=== PATIENT | female | born 1955 ===

== ENCOUNTER 2021-07-05 22:18 | Inpatient (IN) | payer SELFPAY ==
--- NOTE | ~2021-07-05 | CT_ITS ---
EXAMINATION: CT brain wo con DATE: 07/14/2021 15:34 INDICATION: rt arm tremor TECHNIQUE: Computed tomography (CT) of the head was performed without intravenous contrast. The mA wa s adjusted according to patient size. Iterative reconstruction technique was employed. The dose-lengt h product was 529.67 mGy-cm. COMPARISON: None FINDINGS: No acute intracranial hemorrhage or extra-axial fluid collection. No hydrocephalus, mass, or herniation. No acute ischemic infarct. Unremarkable dural venous sinus attenuation. No acute osseous abnormality. The aerated spaces are clear. Mild atrophy and chronic white matter change. Encephalomalacia/gliosis in the right basal ganglia and the right frontal, right temporal, and left medial occipital lobes. Atherosclerotic intracranial thea cification. Multiple partially calcified scalp lesions. IMPRESSION: No acute intracranial process. Reviewed, dictated and finalized at location K.
--- NOTE | ~2021-07-05 | NM_ITS ---
EXAMINATION: NM martín stress w perfusion DATE: 07/09/2021 10:30 INDICATION: Elevated troponin. Near syncope. TECHNIQUE: Rest images were obtained following intravenous administration of 10.0 mCi Tc99m tetrofosm in (Myoview). The patient was infused intravenously with Lexiscan (regadenoson). Then, 29.8 mCi Tc99m tetrofosmin (Myoview) was administered intravenously, and stress images were obtained. Data was navid nstructed into short axis and horizontal and vertical long axis SPECT images. Gated SPECT images were also obtained. COMPARISON: None. FINDINGS: Breast attenuation artifact decreases sensitivity and specificity. There is no definite rev ersible or fixed perfusion abnormality to suggest ischemia or infarction. There is no segmental wall motion abnormality. Left ventricular ejection fraction measures >70%. IMPRESSION: 1. No definite ischemia or infarct. Breast attenuation artifact decreases sensitivity and specificity . 2. Normal left ventricular ejection fraction measuring >70%. Reviewed, dictated and finalized at location A. IMPRESSION: 1. No definite ischemia or infarct. Breast attenuation artifact decreases sensi tivity and specificity. 2. Normal left ventricular ejection fraction measuring >70%.
--- NOTE | ~2021-07-05 | XR_ITS ---
EXAMINATION: XR chest 1V portable DATE: 07/14/2021 10:13 INDICATION: Hypotension. TECHNIQUE: A single frontal view of the chest was obtained. COMPARISON: None. FINDINGS: The chest demonstrates clear lungs without pneumonia, pleural effusion, or pneumothorax. Th e heart size is normal. IMPRESSION: 1. No acute cardiopulmonary disease. Reviewed, dictated and finalized at location A.
[2021-07-05 21:45] VITALS: PULSE 77
[2021-07-05 21:50] VITALS: BMI 20.2
[2021-07-05 22:00] VITALS: O2SAT 96
--- NOTE | 2021-07-05 22:30 | ADMGEN ---
This patient, Francisca Gonzales, was admitted to IMU Room 202-01 at 2136. Patient/family oriented to hospital policies and general routines including ID bracelet, bed and alarms, visiting hours, pain management, procedures, bathroom and other care routines, personal items, smoking policy, room service/diet, and visiting hours. Information on how to activate the Rapid Response Team has been discussed. Patient/Family are encouraged to report perceived risks to care and to ask questions if they do not understand what they are told or what they should do.
[2021-07-05 22:59] LABS: Alanine Aminotransferase 11 U/L (4-35); Albumin Level 4.1 g/dL (3.5-5.1); Alkaline Phosphatase 83 U/L (38-126); Anion Gap 12 mmol/L (8-16); Aspartate Amino Transferase 34 U/L (14-36); Bilirubin,Total 0.9 mg/dL (0.2-1.3); Blood Urea Nitrogen 15 mg/dL (7-17); Calcium 9.3 mg/dL (8.4-10.2); Carbon Dioxide 20 mmol/L (22-30); Chloride 99 mmol/L (98-107); Estimated CRCL calculation 45 ml/min; Estimated Glomerular Filt Rate > 60; Glucose 81 mg/dL (65-110); Potassium 3.6 mmol/L (3.4-5.0); Sodium 131 mmol/L (137-145)
--- NOTE | 2021-07-05 23:22 | PM.IMHP ---
H&P: HPI History of Present Illness Date/Time: Patient was placed observation status for expected length of stay less than 23 hours for management, will plan to re-evaluate tomorrow for improvement. 07/05/21 23:22 Chief Complaint: Emotional distress Narrative: Ms. Gonzales is a 55-year-old female who presented to an outside emergency room with complaints of weakness per outside emergency room records. At this time patient is telling me that she went to the emergency room for emotional distress and she states that she is under a large amount of stress at home and has lost 100 lb in 4 months and she needed help with her finding assistance for her distress. Per outside records patient went into emergency room for complaints of generalized weakness for unknown amount of time. Patient had denied any chest pain, nausea, vomiting, fevers, chills, chest pain, or shortness of breath. At this point time patient will not discuss any symptomology with me she states that she is just to her limit of stress and that is why she is here. Per outside records patient has not been taking her medications for 3-4 days. At this point time she states she takes them off and on and that her tries to assist her with him, but he is also under a large amount of stress and is not always able to help her. Per outside records patient does have a history of chronic hyponatremia and has been hospitalized at least twice for this issue. Upon evaluation at the emergency room patient was noted to have a sodium of 128 and a troponin of 0.046. It was decided that the patient may be transferred to in establishment that had Cardiology available for further recommendations. Patient states that she did have bilateral carotid endarterectomies, but denies any coronary artery stenting or coronary artery bypass grafting. Per outside emergency records patient does have a significant psychiatric history including depressive disorder and is supposed to be taking BuSpar 15 mg twice daily, Lexapro 10 mg once daily, Ativan 0.5 mg every 12 hours as needed for anxiety, Remeron 15 mg at bedtime. Patient is also supposed to be taking amlodipine 5 mg daily aspirin 81 mg once daily atorvastatin 80 mg daily and labetalol every 12 hours. As I stated we are unsure of how long patient has been now off of her medications. Review of Systems Review of Systems: I am unable to obtain a full review of systems secondary effect the patient is refusing to answer questions. FOR[facility]LY [facility], LATER [facility] Past Medical History Medical History (Updated 07/05/21 @ 23:30 by Eleanor Leahy APRN) COPD (chronic obstructive pulmonary disease) Dyslipidemia Hypertension Hyponatremia Psychiatric disorder Surgical History Surgical History (Updated 07/05/21 @ 23:29 by Eleanor Leahy APRN) History of carotid endarterectomy Family History Family History Mother Parkinson disease Sibling Breast cancer Father Heart attack Social History Social History Smoking packs per day: 1.5 Smoking cigarettes per day: 30.0 Years smoked: 30 Smoking pack-years: 45.00 Smoking status: Former smoker Alcohol intake: never Substance use: never Spiritual care concerns: No Meds Home Medications and Allergies Home Medications Medication Instructions Recorded Confirmed Type Aspir-81 81 mg PO BID 07/05/21 07/05/21 History amlodipine 5 mg PO DAILY 07/05/21 07/05/21 History atorvastatin 80 mg PO HS 07/05/21 07/05/21 History buspirone [BuSpar] 15 mg PO BID 07/05/21 07/05/21 History escitalopram oxalate [Lexapro] 10 mg PO DAILY 07/05/21 07/05/21 History labetalol 100 mg PO Q12H 07/05/21 07/05/21 History meloxicam 15 mg PO DAILY 07/05/21 07/05/21 History mirtazapine [Remeron] 15 mg PO HS 07/05/21 07/05/21 History omeprazole 20 mg PO DAILY 07/05/21 07/05/21 History Allergies Allergy/AdvReac Type Severity Reaction Status Date / Time mold Allergy Headache Verified
[2021-07-05 23:37] LABS: Troponin I 0.064 ng/mL (0.000-0.034)
[2021-07-05 23:43] LABS: Hemoglobin A1C 5.5 % (<5.7)
[2021-07-05 23:48] VITALS: BP 112/68; PULSE 79; RESP 16; TEMP 37.1; O2SAT 99
[2021-07-06] VITALS (21 sets, daily range): BP systolic 98–169; BP diastolic 55–96; PULSE 2–102; RESP 16–20; TEMP 36.3–36.8; O2SAT 98–100
--- NOTE | 2021-07-06 | ECHO_ITS ---
Patient Info Name: Francisca Gonzales Age: 65 years : 1955 Gender: Female Ht: 60 in Wt: 109 lbs BSA: 1.45 m2 HR: 75 bpm BP: 110 / 60 mmHg Technical Quality: Good Exam Date: 07/06/2021 2:37 PM Exam Location: [facility] Pulmonary Exam Room: [facility] [place][note 3] Patient Status: Inpatient Admit Date: 07/05/2021 Staff Ordering Physician: Luther Berumen MD Pick And Shovel Man: Mariaa Obrien RDCS Attending Provider: Jose Ramon Zimmerman MD Exam Type: CA echo doppler color flow Study Info Indications - elevated troponins Complete two-dimensional, color flow and Doppler transthoracic echocardiogram is performed. Summary 1. Complete two-dimensional, color flow and Doppler transthoracic echocardiogram is performed. 2. Left ventricular chamber dimension is normal. 3. Left ventricular systolic function is normal, estimated at 65-70%. 4. There is no increased left ventricular wall thickness. 5. The left ventricular diastolic function is grade I diastolic dysfunction. 6. Left ventricular septal wall motion is normal. 7. Right ventricular chamber dimension is normal. 8. Right ventricular systolic function is normal. 9. No pulmonary hypertension, estimated pulmonary arterial systolic pressure is 26 mmHg. 10. There is small to moderate circumferential pericardial effusion. Left Ventricle Left ventricular chamber dimension is normal. Left ventricular systolic function is normal, estimated at 65-70%. There is no increased left ventricular wall thickness. Left ventricular septal wall motion is normal. The left ventricular diastolic function is grade I diastolic dysfunction. Right Ventricle Right ventricular chamber dimension is normal. Right ventricular systolic function is normal. Left Atria Left atrial chamber dimension is normal. Right Atria Right atrial chamber dimension is normal. Aortic Valve The aortic valve is trileaflet. There is no aortic valve sclerosis. There is no aortic valve stenosis. There is no aortic valve regurgitation. Pulmonic Valve The pulmonic valve is not well visualized. Mitral Valve The mitral valve has normal leaflets. There is no mitral valve stenosis. There is no mitral valve regurgitation. Tricuspid Valve The tricuspid valve leaflets are normal. There is no significant tricuspid valve stenosis. There is no tricuspid valve regurgitation. No pulmonary hypertension, estimated pulmonary arterial systolic pressure is 26 mmHg. Pericardium/Pleural There is small to moderate circumferential pericardial effusion. Inferior Vena Cava Normal inferior vena cava with >50% collapse upon inspiration consistent with Empty right atrial pressure, 10 mmHg. Aorta The aortic root size at the sinus of Valsalva is normal. The prox ascending aorta size is normal. Left Ventricular Outflow Tract Name Value Normal LVOT 2D LVOT Diameter 2.0 cm LVOT Doppler LVOT Peak Gradient 4 mmHg LVOT Mean Gradient 3 mmHg LVOT VTI 20 cm LVOT VTI/AV VTI Ratio 1.0 LVOT Stroke Volume
[2021-07-06] MEDS: LABETALOL HCL 100 MG TABLET PO ×2 (00:29→20:52)
[2021-07-06] MEDS: ATORVASTATIN 40 MG TABLET 80 MG PO ×2 (00:30→20:52)
[2021-07-06] MEDS: MIRTAZAPINE 15 MG TABLET PO ×2 (00:30→20:52)
[2021-07-06] MEDS: SODIUM CHLORIDE 0.9% IV 1,000 ML 100 ML IV CONT ×3 (00:30→18:15)
[2021-07-06] MEDS: MELATONIN 3 MG TABLET PO (01:20)
[2021-07-06 02:08] LABS: Troponin I 0.069 ng/mL (0.000-0.034)
[2021-07-06] MEDS: ONDANSETRON INJ 4 MG/2 ML VIAL IV PUSH (03:25)
[2021-07-06 05:18] LABS: Basophils Absolute Auto 0.1 K/mm3 (0.0-0.1); Basophils Percent Auto 0.7 % (0.2-1.2); Eosinophils Absolute Auto 0.1 K/mm3 (0-0.3); Eosinophils Percent Auto 0.8 % (0-4.4); Hematocrit 43.4 % (37.0-47.0); Hemoglobin 14.5 g/dL (12.0-15.0); Immature Granulocyte Absolute 0.03 K/mm3 (0.00-0.031); Immature Granulocyte Percent A 0.3 % (0-0.5); Lymphocytes Percent Auto 13.3 % (18.3-44.2); Mean Corpuscular HGB Conc 33.4 g/dl (32-36); Mean Corpuscular Hemoglobin 28.2 pg (26-34); Mean Corpuscular Volume 84.3 fl (80-100); Mean Platelet Volume 10.9 fl (7.4-10.4); Monocytes Absolute Auto 0.6 K/mm3 (0.1-0.6); Neutrophils Absolute Auto 7.7 K/mm3 (1.3-6.7); Neutrophils Percent Auto 78.9 % (45.5-73.1); Platelet Count Result 290 k/mm3 (150-375); Red Blood Count 5.15 M/mm3 (4.2-5.4); Red Cell Distribution Width 14.4 % (11.5-14.5); White Blood Count 9.8 K/mm3 (4.5-10.0)
[2021-07-06 05:33] LABS: Anion Gap 11 mmol/L (8-16); Blood Urea Nitrogen 16 mg/dL (7-17); Calcium 8.8 mg/dL (8.4-10.2); Carbon Dioxide 22 mmol/L (22-30); Chloride 100 mmol/L (98-107); Estimated CRCL calculation 45 ml/min; Estimated Glomerular Filt Rate > 60; Glucose 73 mg/dL (65-110); Magnesium 1.8 mg/dL (1.6-2.3); Potassium 3.5 mmol/L (3.4-5.0); Sodium 133 mmol/L (137-145)
[2021-07-06 05:42] LABS: Troponin I 0.066 ng/mL (0.000-0.034)
[2021-07-06] MEDS: ASPIRIN 81 MG CHEWABLE TABLET PO (09:06)
[2021-07-06] MEDS: PANTOPRAZOLE 40 MG TABLET PO (09:06)
[2021-07-06] MEDS: ESCITALOPRAM OXALATE 10 MG TABLET PO (09:06)
[2021-07-06] MEDS: MELOXICAM 7.5 MG TABLET 15 MG PO (09:06)
[2021-07-06] MEDS: busPIRone HCL 5 MG TABLET 15 MG PO ×2 (09:07→17:18)
--- NOTE | 2021-07-06 12:46 | PM.IMPN ---
Progress Note: A&P Assessment and Plan (1) Elevated troponin: Code(s): R77.8 - Other specified abnormalities of plasma proteins Status: Acute Assessment and Plan: No workup needed. Cardiology has been consult and do appreciate further recommendations. (2) Psychiatric disorder: Code(s): F99 - Mental disorder, not otherwise specified Status: Acute Assessment and Plan: Patient is on multiple psychiatric medications. Will need close outpatient monitoring. (3) Hypertension: Code(s): I10 - Essential (primary) hypertension Status: Acute Assessment and Plan: Monitor blood pressure. Continue current medicines (4) Hyponatremia: Code(s): E87.1 - Hypo-osmolality and hyponatremia Status: Acute Assessment and Plan: The patient does have some mild altered mental status. No focal neurological deficits. Cause is likely related to multiple psychiatric medications. Will start sodium chloride tablets. Also note patient does have decreased p.o. intake and has lost some weight. According to her she does not eat much at all. Will start Megace Subjective Date/time seen: 07/06/21 12:46 DOING WELL, NO COMPLAINTS OF CHEST PAIN THE PATIENT IS SLIGHTLY CONFUSED. ACCORDING TO THE WHO IS AT BEDSIDE, THE PATIENT GETS LIKE this with a low sodium. Review of Systems Review of Systems: All systems reviewed & are unremarkable except as noted in HPI and below (HPI) Exam Narrative: Constitutional: Patient is well-nourished in no acute distress. Patient is alert and oriented x3 HEENT: Moist mucous membranes. No scleral icterus. No lymphadenopathy. Neck: No carotid bruits noted no JVD noted Lungs: Lung sounds are clear to auscultation bilaterally. No accessory muscle use. No rhonchi, rales, or wheezes noted. Cardiovascular: Apical pulse is regular rate and rhythm. S1-S2 noted, no S3 or S4 noted. No gallops, murmurs, or rubs noted. Abdomen: Soft, round, and nontender. No sagging skin noted at this time. No palpable masses. Extremities: No edema. Nontender. Skin: No rashes or lesions. Warm and dry. Skin is intact. Neurological: No focal neurological deficits. Cranial nerves II-XII grossly intact. Psychiatric: Patient is uncooperative and not answering questions. Objective Data Vital Signs Vital Signs: Vital Signs - 24 hr 07/05/21 21:45 07/05/21 22:00 07/05/21 23:48 Temperature 98.8 F Pulse Rate 77 79 Respiratory Rate 16 Blood Pressure 112/68 Pulse Oximetry 96 99 07/06/21 00:00 07/06/21 00:29 07/06/21 02:00 Temperature Pulse Rate 76 76 70 Respiratory Rate Blood Pressure Pulse Oximetry 99 07/06/21 04:00 07/06/21 06:00 07/06/21 08:00 Temperature 97.5 F L Pulse Rate 68 81 72 Respiratory Rate 16 16 Blood Pressure 108/61 Pulse Oximetry 100 100 07/06/21 08:29 07/06/21 10:00 07/06/21 10:29 Temperature 98.2 F Pulse Rate 71 72 94 Respiratory Rate 16 Blood Pressure 98/55 L Pulse Oximetry 100 07/06/21 12:18 07/06/21 12:34 Temperature 97.6 F Pulse Rate 72 70 Respiratory Rate 18 Blood Pressure 110/60 Pulse Oximetry 98 Intake/Output Intake/Output: Intake & Output 07/03/21 07/04/21 07/05/21 07/06/21 23:59 23:59 23:59 23:59 Intake Total 1120 Output Total 1500 Balance -380 Meds/Results Medications: Active Medications Generic Name Dose Route Start Last Admin Trade Name Freq PRN Reason Stop Dose Admin Acetaminophen 650 mg 07/05/21 22:16 Acetaminophen 325 Mg Tablet PO Q4H PRN Mild Pain (1-3) or Fever Amlodipine Besylate 5 mg 07/06/21 09:00 07/06/21 12:04 Amlodipine Besylate 5 Mg Tablet PO Not Given DAILY [facility] Aspirin 81 mg 07/06/21 08:00 07/06/21 09:06 Aspirin 81 Mg Chewable Tablet PO 81 mg BIDWM HANNAH Administration Atorvastatin Calcium 80 mg 07/06/21 00:05 07/06/21 00:30 Atorvastatin 40 Mg Tablet PO 80 mg HS
--- NOTE | 2021-07-06 12:50 | PM.CNCAR ---
Assessment and Plan Additional Plan Elevated trop, no chest pain or SOB or other cardiac symptoms, EKG with no concern for ACS. trop elevation with no significant delta. AMS likely related to hyponatremia vs stroke. She had Hx of TIA and CEA. Plan TTE, rule out stroke, work up for CAD can be considered when she recovers from current acute mental illness/hyponatremia. History of Present Illness History of Present Illness Consult date/time: 07/06/21 12:50 Consult reason: Other (Elevated troponin ) Reason For Visit: Hyponatremia elevated trop Narrative: Patient is confused and can't obtain Hx from her. History is abstracted from chart. She presented to ER with complaints of weakness, generalized and sever. She had Hx of psychiatric disorder and had prior admission with hyponatremia and confusion. She mentioned that she lives with her and he is taking care of her. On admission her K was 128 and trop was mildly elevated at 0.04 with slight changes on serial measures. Review of Systems Review of Systems: ROS unobtainable: Yes unobtainable due to mental status PMFSH Past Medical History Medical History (Updated 07/05/21 @ 23:30 by Eleanor Leahy APRN) COPD (chronic obstructive pulmonary disease) Dyslipidemia Hypertension Hyponatremia Psychiatric disorder Surgical History Surgical History (Updated 07/05/21 @ 23:29 by Eleanor Leahy APRN) History of carotid endarterectomy Family History Family History Mother Parkinson disease Sibling Breast cancer Father Heart attack Social History Social History Smoking packs per day: 1.5 Smoking cigarettes per day: 30.0 Years smoked: 30 Smoking pack-years: 45.00 Smoking status: Former smoker Alcohol intake: never Substance use: never Spiritual care concerns: No Meds Home Medications and Allergies Home Medications Medication Instructions Recorded Confirmed Type Aspir-81 81 mg PO BID 07/05/21 07/05/21 History amlodipine 5 mg PO DAILY 07/05/21 07/05/21 History atorvastatin 80 mg PO HS 07/05/21 07/05/21 History buspirone [BuSpar] 15 mg PO BID 07/05/21 07/05/21 History escitalopram oxalate [Lexapro] 10 mg PO DAILY 07/05/21 07/05/21 History labetalol 100 mg PO Q12H 07/05/21 07/05/21 History meloxicam 15 mg PO DAILY 07/05/21 07/05/21 History mirtazapine [Remeron] 15 mg PO HS 07/05/21 07/05/21 History omeprazole 20 mg PO DAILY 07/05/21 07/05/21 History Allergies Allergy/AdvReac Type Severity Reaction Status Date / Time mold Allergy Headache Verified 07/05/21 22:38 ciprofloxacin [From Cipro] AdvReac Itching Verified 07/05/21 22:52 Vital Signs Vital Signs - 24 hr 07/05/21 21:45 07/05/21 22:00 07/05/21 23:48 Temperature 37.1 C Pulse Rate 77 79 Respiratory Rate 16 Blood Pressure 112/68 Pulse Oximetry 96 99 07/06/21 00:00 07/06/21 00:29 07/06/21 02:00 Temperature Pulse Rate 76 76 70 Respiratory Rate Blood Pressure Pulse Oximetry 99 07/06/21 04:00 07/06/21 06:00 07/06/21 08:00 Temperature 36.4 C L Pulse Rate 68 81 72 Respiratory Rate 16 16 Blood Pressure 108/61 Pulse Oximetry 100 100 07/06/21 08:29 07/06/21 10:00 07/06/21 10:29 Temperature 36.8 C Pulse Rate 71 72 94 Respiratory Rate 16 Blood Pressure 98/55 L Pulse Oximetry 100 07/06/21 12:18 07/06/21 12:34 Temperature 36.4 C Pulse Rate 72 70 Respiratory Rate 18 Blood Pressure 110/60 Pulse Oximetry 98 Exam Const: General: comfortable and no acute distress Other: Able to lie flat HENMT: General nose exam: Normal nares present and no epistaxis Mouth: Yes moist mucous membranes Eyes: Sclera: sclerae normal Pupils: Equal, round and reactive pupils present Neck: Neck: supple and no JVD Carotids: no bruits Resp: Auscultation: clear to auscultation bilaterally and lung sounds not diminished Other: No chest wall tenderness Cardio: Rate
--- NOTE | 2021-07-06 13:07 | ECG_ITS ---
Measurements Intervals [place] Rate: 76 P: 74 [place]: 194 QRS: 34 QRSD: 95 T: 44 QT: 418 QTc: 472 Interpretive Statements SINUS RHYTHM POSSIBLE RIGHT VENTRICULAR CONDUCTION DELAY [RSR (QR) IN V1/V2] NO PREVIOUS ECG AVAILABLE FOR COMPARISON Electronically Signed On 07-07-2021 6:54:09 CDT by Stefani Fernandes M.D.
--- NOTE | 2021-07-06 16:00 | PC.NURSE ---
Patient bladder scan obtained at 1600, as patient was unable to void. Bladder scan noted to have [address] Bowling notified and an order was obtained to initiate a urinary catheter, and begin bladder training.
[2021-07-06] MEDS: MEGESTROL ACETATE (*CHEMO) ORAL SUSP 40 MG/ML SYR 800 MG PO (17:18)
[2021-07-06] MEDS: SODIUM CHLORIDE 500 MG TABLET PO (17:18)
[2021-07-07] VITALS (11 sets, daily range): BP systolic 98–160; BP diastolic 56–79; PULSE 73–97; RESP 14–18; TEMP 35.9–36.5; O2SAT 99–100
[2021-07-07] MEDS: SODIUM CHLORIDE 0.9% IV 1,000 ML 100 ML IV CONT ×3 (04:30→22:58)
[2021-07-07 05:05] LABS: Anion Gap 5 mmol/L (8-16); Blood Urea Nitrogen 13 mg/dL (7-17); Calcium 8.5 mg/dL (8.4-10.2); Carbon Dioxide 24 mmol/L (22-30); Chloride 108 mmol/L (98-107); Estimated CRCL calculation 50 ml/min; Estimated Glomerular Filt Rate > 60; Glucose 113 mg/dL (65-110); Potassium 3.1 mmol/L (3.4-5.0); Sodium 137 mmol/L (137-145)
[2021-07-07] MEDS: busPIRone HCL 5 MG TABLET 15 MG PO ×2 (08:15→16:19)
[2021-07-07] MEDS: ASPIRIN 81 MG CHEWABLE TABLET PO (08:16)
[2021-07-07] MEDS: MEGESTROL ACETATE (*CHEMO) ORAL SUSP 40 MG/ML SYR 800 MG PO (08:17)
[2021-07-07] MEDS: MELOXICAM 7.5 MG TABLET 15 MG PO (08:17)
[2021-07-07] MEDS: PANTOPRAZOLE 40 MG TABLET PO (08:18)
[2021-07-07] MEDS: LABETALOL HCL 100 MG TABLET PO ×2 (08:18→20:47)
[2021-07-07] MEDS: SODIUM CHLORIDE 500 MG TABLET PO ×2 (08:18→16:19)
[2021-07-07] MEDS: ESCITALOPRAM OXALATE 10 MG TABLET PO (08:18)
--- NOTE | 2021-07-07 11:53 | PM.IMPN ---
Progress Note: A&P Assessment and Plan (1) Elevated troponin: Code(s): R77.8 - Other specified abnormalities of plasma proteins Status: Acute Assessment and Plan: No workup needed. Cardiology has been consult and do appreciate further recommendations. (2) Psychiatric disorder: Code(s): F99 - Mental disorder, not otherwise specified Status: Acute Assessment and Plan: Patient is on multiple psychiatric medications. Will need close outpatient monitoring. (3) Hypertension: Code(s): I10 - Essential (primary) hypertension Status: Acute Assessment and Plan: Monitor blood pressure. Continue current medicines (4) Hyponatremia: Code(s): E87.1 - Hypo-osmolality and hyponatremia Status: Acute Assessment and Plan: The patient does have some mild altered mental status. No focal neurological deficits. Her altered mental status is much improved. Cause is likely related to multiple psychiatric medications. Will start sodium chloride tablets. Also note patient does have decreased p.o. intake and has lost some weight. According to her she does not eat much at all. Will start Megace. Sodium is much improved. Her ultimate her mental status is also improved significantly. Likely discharge in 1-2 days Subjective Date/time seen: 07/07/21 11:53 Doing much better. Patient is answering questions. She is able to tell me the date and where she is at. Much more alert today Review of Systems Review of Systems: All systems reviewed & are unremarkable except as noted in HPI and below (HPI) Exam Narrative: Constitutional: Patient is well-nourished in no acute distress. Patient is alert and oriented x3 HEENT: Moist mucous membranes. No scleral icterus. No lymphadenopathy. Neck: No carotid bruits noted no JVD noted Lungs: Lung sounds are clear to auscultation bilaterally. No accessory muscle use. No rhonchi, rales, or wheezes noted. Cardiovascular: Apical pulse is regular rate and rhythm. S1-S2 noted, no S3 or S4 noted. No gallops, murmurs, or rubs noted. Abdomen: Soft, round, and nontender. No sagging skin noted at this time. No palpable masses. Extremities: No edema. Nontender. Skin: No rashes or lesions. Warm and dry. Skin is intact. Neurological: No focal neurological deficits. Cranial nerves II-XII grossly intact. Psychiatric: Patient is uncooperative and not answering questions. Objective Data Vital Signs Vital Signs: Vital Signs - 24 hr 07/06/21 12:18 07/06/21 12:30 07/06/21 12:34 Temperature 97.6 F Pulse Rate 72 73 70 Respiratory Rate 18 Blood Pressure 110/60 Pulse Oximetry 98 07/06/21 14:00 07/06/21 16:00 07/06/21 16:48 Temperature 97.7 F Pulse Rate 76 75 76 Respiratory Rate 20 Blood Pressure 146/70 H Pulse Oximetry 100 07/06/21 18:00 07/06/21 19:32 07/06/21 20:00 Temperature 97.3 F L Pulse Rate 97 78 72 Respiratory Rate 16 Blood Pressure 147/74 H Pulse Oximetry 99 99 07/06/21 20:52 07/06/21 22:03 07/06/21 23:46 Temperature 98.3 F Pulse Rate 81 73 102 H Respiratory Rate 16 Blood Pressure 169/96 H Pulse Oximetry 100 07/07/21 00:00 07/07/21 02:00 07/07/21 04:00 Temperature 97.1 F L Pulse Rate 86 73 86 Respiratory Rate 16 Blood Pressure 148/78 H Pulse Oximetry 100 100 07/07/21 06:00 07/07/21 07:44 07/07/21 08:00 Temperature 96.7 F L Pulse Rate 76 84 86 Respiratory Rate 14 Blood Pressure 122/72 Pulse Oximetry 99 100 07/07/21 08:18 07/07/21 10:00 07/07/21 11:44 Temperature 97.0 F L Pulse Rate 97 77 73 Respiratory Rate 18 Blood Pressure 104/67 Pulse Oximetry 100 Intake/Output Intake/Output: Intake & Output 07/04/21 07/05/21 07/06/21 07/07/21 23:59 23:59 23:59 23:59 Intake Total 2560 1130 Output Total 2600 1650 Balance -40 -520 Meds/Results Medications: Active Medications Generic Name Dose Route Start Last A
--- NOTE | 2021-07-07 12:59 | PM.PNCARD ---
Progress Note: A&P Additional Plan Elevated trop, no chest pain or SOB or other cardiac symptoms, EKG with no concern for ACS. trop elevation with no significant delta. AMS likely related to hyponatremia improved. She had Hx of TIA and CEA. Plan TTE, stress test in AM. Subjective Date/time seen: 07/07/21 12:59 Interval history: no acute events more awake today but sluggish response Review of Systems Review of Systems: All systems reviewed & are unremarkable except as noted in HPI and below Exam Const: General: comfortable and no acute distress Other: Able to lie flat HENMT: General nose exam: Normal nares present and no epistaxis Mouth: Yes moist mucous membranes Eyes: Sclera: sclerae normal Pupils: Equal, round and reactive pupils present Neck: Neck: supple and no JVD Carotids: no bruits Resp: Auscultation: clear to auscultation bilaterally and lung sounds not diminished Other: No chest wall tenderness Cardio: Rate: regular rate Rhythm: regular rhythm Heart sounds: no gallops, no murmurs and no rubs GI: GI Palp: Yes Soft to palpation and No Tenderness to palpation present (GI) Auscultation: normal bowel sounds Skin: General skin exam: normal color, rashes and/or lesions noted and no erythema Other: Warm Neuro: Cranial nerves: Yes Equal, round and reactive pupils present Speech: normal speech Other: No obvious focal deficit or facial asymmetry Extrem: General: no edema Other: Normal capillary refills Intact distal pulses. Objective Data Vital Signs Vital Signs: Vital Signs - 24 hr 07/06/21 14:00 07/06/21 16:00 07/06/21 16:48 Temperature 36.5 C Pulse Rate 76 75 76 Respiratory Rate 20 Blood Pressure 146/70 H Pulse Oximetry 100 07/06/21 18:00 07/06/21 19:32 07/06/21 20:00 Temperature 36.3 C L Pulse Rate 97 78 72 Respiratory Rate 16 Blood Pressure 147/74 H Pulse Oximetry 99 99 07/06/21 20:52 07/06/21 22:03 07/06/21 23:46 Temperature 36.8 C Pulse Rate 81 73 102 H Respiratory Rate 16 Blood Pressure 169/96 H Pulse Oximetry 100 07/07/21 00:00 07/07/21 02:00 07/07/21 04:00 Temperature 36.2 C L Pulse Rate 86 73 86 Respiratory Rate 16 Blood Pressure 148/78 H Pulse Oximetry 100 100 07/07/21 06:00 07/07/21 07:44 07/07/21 08:00 Temperature 35.9 C L Pulse Rate 76 84 86 Respiratory Rate 14 Blood Pressure 122/72 Pulse Oximetry 99 100 07/07/21 08:18 07/07/21 10:00 07/07/21 11:44 Temperature 36.1 C L Pulse Rate 97 77 73 Respiratory Rate 18 Blood Pressure 104/67 Pulse Oximetry 100 Intake/Output Intake/Output: Intake & Output 07/04/21 07/05/21 07/06/21 07/07/21 23:59 23:59 23:59 23:59 Intake Total 2560 1130 Output Total 2600 1650 Balance -40 -520 Meds/Results Medications: Active Medications Generic Name Dose Route Start Last Admin Trade Name Freq PRN Reason Stop Dose Admin Acetaminophen 650 mg 07/05/21 22:16 Acetaminophen 325 Mg Tablet PO Q4H PRN Mild Pain (1-3) or Fever Amlodipine Besylate 5 mg 07/06/21 09:00 07/06/21 12:04 Amlodipine Besylate 5 Mg Tablet PO Not Given DAILY HANNAH Aspirin 81 mg 07/07/21 08:00 07/07/21 08:16 Aspirin 81 Mg Chewable Tablet PO 81 mg DAILY@0800 HANNAH Administration Atorvastatin Calcium 80 mg 07/06/21 00:05 07/06/21 20:52 Atorvastatin 40 Mg Tablet PO 80 mg HS HANNAH Administration Bisacodyl 5 mg 07/05/21 22:16 Bisacodyl 5 Mg Tablet Ec PO DAILY PRN Constipation Buspirone HCl 15 mg 07/06/21 09:00 07/07/21 08:15 Buspirone Hcl 5 Mg Tablet PO 15 mg BID HANNAH Administration Enoxaparin Sodium 40 mg 07/06/21 09:00 07/06/21 18:13 Enoxaparin 40 Mg/0.4 Ml Syringe SUB-Q Not Given DAILY HANNAH Escitalopram Oxalate 10 mg 07/06/21 09:00 07/07/21 08:18 Escitalopram Oxalate 10 Mg Tablet PO 10 mg DAILY HANNAH Administration Sodium Chloride 1,000 mls @ 100 mls/hr 07/05/21 22:20 07/07/21 04:30 N
[2021-07-07] MEDS: POTASSIUM CHLORIDE 20 MEQ PACKET (FOR LIQUID) 40 MEQ PO (13:31)
[2021-07-07] MEDS: ENOXAPARIN 40 MG/0.4 ML SYRINGE SUB-Q (13:31)
--- NOTE | 2021-07-07 14:48 | PCDIET ---
This patient, Francisca Gonzales, was received from [[facility] ] on 07/07/21 at 1448. Report received from Abigail. Patient/family oriented to unit policies and routines
--- NOTE | 2021-07-07 15:05 | PC.NURSE ---
This patient, Francisca Gonzales, was transferred to [[facility] ] on 07/07/21 at 14:35. Personal belongings sent with patient. Report given to [Ricarda ]. Appropriate documentation sent with patient.
[2021-07-07] MEDS: ATORVASTATIN 40 MG TABLET 80 MG PO (20:47)
[2021-07-07] MEDS: MIRTAZAPINE 15 MG TABLET PO (20:47)
[2021-07-07] MEDS: MELATONIN 3 MG TABLET PO (22:54)
[2021-07-08] VITALS (10 sets, daily range): BP systolic 82–183; BP diastolic 58–83; PULSE 66–91; RESP 12–18; TEMP 36.4–36.8; O2SAT 97–100; BMI 24.0
[2021-07-08 05:23] LABS: Anion Gap 6 mmol/L (8-16); Blood Urea Nitrogen 12 mg/dL (7-17); Calcium 8.3 mg/dL (8.4-10.2); Carbon Dioxide 19 mmol/L (22-30); Chloride 111 mmol/L (98-107); Estimated CRCL calculation 50 ml/min; Estimated Glomerular Filt Rate > 60; Glucose 92 mg/dL (65-110); Potassium 3.1 mmol/L (3.4-5.0); Sodium 136 mmol/L (137-145)
[2021-07-08] MEDS: LABETALOL HCL 100 MG TABLET PO (08:23)
[2021-07-08] MEDS: busPIRone HCL 5 MG TABLET 15 MG PO ×2 (08:24→16:10)
[2021-07-08] MEDS: ASPIRIN 81 MG CHEWABLE TABLET PO (08:24)
[2021-07-08] MEDS: MEGESTROL ACETATE (*CHEMO) ORAL SUSP 40 MG/ML SYR 800 MG PO (08:24)
[2021-07-08] MEDS: SODIUM CHLORIDE 500 MG TABLET PO ×2 (08:24→16:10)
[2021-07-08] MEDS: MELOXICAM 7.5 MG TABLET 15 MG PO (08:24)
[2021-07-08] MEDS: PANTOPRAZOLE 40 MG TABLET PO (08:24)
[2021-07-08] MEDS: ENOXAPARIN 40 MG/0.4 ML SYRINGE SUB-Q (08:24)
[2021-07-08] MEDS: ESCITALOPRAM OXALATE 10 MG TABLET PO (08:24)
--- NOTE | 2021-07-08 09:31 | PC.NURSE ---
Responded to rapid response. Pt was in nuclear medicine lab. See rapid response note.
--- NOTE | 2021-07-08 09:44 | PM.PNCARD ---
Progress Note: A&P Assessment and Plan (1) Elevated troponin: Code(s): R77.8 - Other specified abnormalities of plasma proteins Status: Acute Assessment and Plan: Patient has mildly elevated troponin that was essentially flat. Her EKG did not have any ischemic looking changes. Denies any chest pain or shortness of breath. She had plans for lexiscan stress test today but was extremely hypotensive, per report nearly unresponsive prior to lexiscan in radiology. Rapid response called and stress test cancelled. Echo showed normal LVEF, grade I diastolic dysfunction, no significant valvular pathology Will attempt stress test again tomorrow (2) Pericardial effusion: Code(s): I31.3 - Pericardial effusion (noninflammatory) Status: Acute Assessment and Plan: Small - moderate pericardial effusion by surface echo. She's hemodynamically stable, no evidence of tamponade physiology on echo. Will repeat echo as outpatient to monitor. Subjective Date/time seen: 07/08/21 09:44 Cardiology follow up for elevated troponin Interval history: She had what sounds like a vasovagal near syncopal episode in radiology prior to her lexiscan this morning. Patient is unable to give me any details surrounding this event - she does respond to some questions but is not oriented. Apparently this has been the patient's baseline. Review of Systems Review of Systems: All systems reviewed & are unremarkable except as noted in HPI and below ROS unobtainable: Yes unobtainable due to mental status Exam Const: General: comfortable and no acute distress Other: Able to lie flat HENMT: General nose exam: Normal nares present and no epistaxis Mouth: Yes moist mucous membranes Eyes: Sclera: sclerae normal Pupils: Equal, round and reactive pupils present Neck: Neck: supple and no JVD Carotids: no bruits Resp: Auscultation: clear to auscultation bilaterally and lung sounds not diminished Other: No chest wall tenderness Cardio: Rate: regular rate Rhythm: regular rhythm Heart sounds: no gallops, no murmurs and no rubs GI: Auscultation: normal bowel sounds Skin: General skin exam: normal color, rashes and/or lesions noted and no erythema Other: Warm Neuro: Cranial nerves: Yes Equal, round and reactive pupils present Speech: normal speech Motor exam (neuro): 5/5 motor strength present throughout Extrem: General: no edema Other: Normal capillary refills Intact distal pulses. Psych: Affect: Blunted affect present Objective Data Vital Signs Vital Signs: Vital Signs - 24 hr 07/07/21 10:00 07/07/21 11:44 07/07/21 15:00 Temperature 36.1 C L 36.5 C Pulse Rate 77 73 78 Respiratory Rate 18 16 Blood Pressure 104/67 98/56 L Pulse Oximetry 100 99 07/07/21 20:01 07/08/21 03:17 07/08/21 08:23 Temperature 35.9 C L 36.6 C Pulse Rate 79 83 78 Respiratory Rate 17 18 Blood Pressure 160/79 H 177/78 H Pulse Oximetry 99 99 07/08/21 09:39 Temperature Pulse Rate 66 Respiratory Rate 14 Blood Pressure 170/68 H Pulse Oximetry 100 Intake/Output Intake/Output: Intake & Output 07/05/21 07/06/21 07/07/21 07/08/21 23:59 23:59 23:59 23:59 Intake Total 2560 3610 400 Output Total 2600 1650 1350 Balance -40 1960 -950 Meds/Results Medications: Active Medications Generic Name Dose Route Start Last Admin Trade Name Freq PRN Reason Stop Dose Admin Acetaminophen 650 mg 07/05/21 22:16 Acetaminophen 325 Mg Tablet PO Q4H PRN Mild Pain (1-3) or Fever Amlodipine Besylate 5 mg 07/06/21 09:00 07/06/21 12:04 Amlodipine Besylate 5 Mg Tablet PO Not Given DAILY HANNAH Aspirin 81 mg 07/07/21 08:00 07/08/21 08:24 Aspirin 81 Mg Chewable Tablet PO 81 mg DAILY@0800 HANNAH Administration Atorvastatin Calcium 80 mg 07/06/21 00:05 07/07/21 20:47 Atorvastatin 40 Mg Tablet PO 80 mg HS HANNAH Administration Bisacodyl 5 mg 07/05/21 22:16 Bisacodyl 5 Mg Tablet Ec P
[2021-07-08] MEDS: SODIUM CHLORIDE 0.9% IV 1,000 ML 100 ML IV CONT ×2 (10:44→20:15)
--- NOTE | 2021-07-08 14:04 | PM.IMPN ---
Progress Note: A&P Assessment and Plan (1) Elevated troponin: Code(s): R77.8 - Other specified abnormalities of plasma proteins Status: Acute Assessment and Plan: Cardiology has been consulted. Stress test was ordered which can be postponed until DC. (2) Psychiatric disorder: Code(s): F99 - Mental disorder, not otherwise specified Status: Acute Assessment and Plan: Patient is on multiple psychiatric medications. mood is stable today (3) Hypertension: Code(s): I10 - Essential (primary) hypertension Status: Acute Assessment and Plan: Bp is better now continue to monitor orthostatic Bps (4) Hyponatremia: Code(s): E87.1 - Hypo-osmolality and hyponatremia Status: Acute Assessment and Plan: Sodium is much improved. Her mental status is better. Pt is eating more since megace started. continue to monitor sodium hopeful DC tomorrow. Subjective Date/time seen: 07/08/21 14:04 Interval history: 55-year-old female who presented to an outside emergency room with complaints of weakness per outside emergency room records. At this time patient is telling me that she went to the emergency room for emotional distress and she states that she is under a large amount of stress at home and has lost 100 lb in 4 months and she needed help with her finding assistance for her distress. Pt was found to have high troponin and low sodium on admission. Pt was ordered a stress test today unfortunately pt had a rapid response just before the stress test downstairs. Pt vitals were stable as the time pt felt very hot. And her Bp dipped down slightly. Pt is being monitored on the floor today with orthostatic Bps and hopefully can be dc tomorrow. Pt denies any Chest pain or SOB Review of Systems Review of Systems: All systems reviewed & are unremarkable except as noted in HPI and below Exam Narrative: Constitutional: Patient is well-nourished in no acute distress. Lungs: Lung sounds are clear to auscultation bilaterally. No accessory muscle use. No rhonchi, rales, or wheezes noted. Cardiovascular: Apical pulse is regular rate and rhythm. S1-S2 noted, no S3 or S4 noted. No gallops, murmurs, or rubs noted. Abdomen: Soft, round, and nontender. No sagging skin noted at this time. No palpable masses. Extremities: No edema. Nontender. Skin: No rashes or lesions. Warm and dry. Skin is intact. Neurological: No focal neurological deficits. Cranial nerves II-XII grossly intact. Psychiatric: Patient is uncooperative and not answering questions. Objective Data Vital Signs Vital Signs: Vital Signs - 24 hr 07/07/21 15:00 07/07/21 20:01 07/08/21 03:17 Temperature 36.5 C 35.9 C L 36.6 C Pulse Rate 78 79 83 Respiratory Rate 16 17 18 Blood Pressure 98/56 L 160/79 H 177/78 H Pulse Oximetry 99 99 99 07/08/21 08:23 07/08/21 09:39 07/08/21 10:51 Temperature Pulse Rate 78 66 71 Respiratory Rate 14 12 Blood Pressure 170/68 H 110/72 Pulse Oximetry 100 97 Intake/Output Intake/Output: Intake & Output 07/05/21 07/06/21 07/07/21 07/08/21 23:59 23:59 23:59 23:59 Intake Total 2560 3610 1520 Output Total 2600 1650 2125 Balance -40 1960 -605 Meds/Results Medications: Active Medications Generic Name Dose Route Start Last Admin Trade Name Freq PRN Reason Stop Dose Admin Acetaminophen 650 mg 07/05/21 22:16 Acetaminophen 325 Mg Tablet PO Q4H PRN Mild Pain (1-3) or Fever Amlodipine Besylate 5 mg 07/06/21 09:00 07/06/21 12:04 Amlodipine Besylate 5 Mg Tablet PO Not Given DAILY HANNAH Aspirin 81 mg 07/07/21 08:00 07/08/21 08:24 Aspirin 81 Mg Chewable Tablet PO 81 mg DAILY@0800 HANNAH Administration Atorvastatin Calcium 80 mg 07/06/21 00:05 07/07/21 20:47 Atorvastatin 40 Mg Tablet PO 80 mg HS HANNAH Administration Bisacodyl 5 mg 07/05/21 22:16 Bisacodyl 5 Mg Tablet Ec PO DAILY PRN Constipation
--- NOTE | 2021-07-08 14:41 | PCCCNOTE ---
On 07/08/21, the student, [Ana Forde ], provided care and completed [facility] documentation on this patient. I have reviewed the student's documentation and agree with the findings.
[2021-07-08] MEDS: POTASSIUM CHLORIDE 20 MEQ PACKET (FOR LIQUID) 40 MEQ PO (16:23)
[2021-07-08] MEDS: ATORVASTATIN 40 MG TABLET 80 MG PO (20:14)
[2021-07-08] MEDS: MIRTAZAPINE 15 MG TABLET PO (20:15)
[2021-07-08] MEDS: MELATONIN 3 MG TABLET PO (20:25)
[2021-07-09] VITALS (9 sets, daily range): BP systolic 82–187; BP diastolic 53–94; PULSE 82–105; RESP 16–18; TEMP 36.3–36.8; O2SAT 99–100
--- NOTE | 2021-07-09 | EST_ITS ---
Patient Info Name: Francisca Gonzales Age: 65 years : 1955 Gender: Female Ht: 60 in Wt: 123 lbs BSA: 1.55 m2 HR: 83 bpm BP: 165 / 93 mmHg Heart Rhythm: Sinus Rhythm Exam Date: 07/09/2021 9:07 AM Exam Location: [facility] Stress Patient Status: Outpatient Admit Date: 07/05/2021 Staff Ordering Physician: Kalee Estevez Attending Provider: Jose Ramon Zimmerman MD Exercise Technologist: Love Ivy CT Nurse: KALEE ESTEVEZ Exam Type: CA stress martín w NM Study Info Indications R74.8 - ELEVATED TROPONIN A regadenoson stress test was performed. Summary 1. Please correlate with nuclear medicine images, reported separately. 2. No abnormal ST-T wave changes with lexiscan. Protocol: Lexiscan Stress ECG Details Stage: REST Duration (min): 1 min : 43 sec HR (bpm): 82 SBP (mmHg): 165 DBP (mmHg): 93 Stage: REST Duration (min): 14 min : 9 sec HR (bpm): 82 SBP (mmHg): 165 DBP (mmHg): 93 Stage: STAGE 1 Duration (min): 1 min : 0 sec HR (bpm): 88 SBP (mmHg): 177 DBP (mmHg): 69 Stage: RECOVERY Duration (min): 1 min : 0 sec HR (bpm): 94 SBP (mmHg): 177 DBP (mmHg): 69 Stage: RECOVERY Duration (min): 2 min : 0 sec HR (bpm): 92 SBP (mmHg): 177 DBP (mmHg): 69 Stage: RECOVERY Duration (min): 3 min : 0 sec HR (bpm): 93 SBP (mmHg): 138 DBP (mmHg): 69 Stage: RECOVERY Duration (min): 3 min : 3 sec HR (bpm): 91 SBP (mmHg): 138 DBP (mmHg): 69 Rest HR: 82 bpm Peak HR: 95 bpm Rest Sys BP: 165 mmHg Peak Sys BP: 177 mmHg Max Pred HR: 155 bpm % Max Pred HR: 61 % Target HR: 132 bpm Max RPP: 16,815 bpm*mmHg BP Response: Normal blood pressure response Total Time: 1 min : 0 sec Rest Lafleur BP: 93 mmHg Peak Lafleur BP: 69 mmHg Total Dose: 0.4 mg Resting ECG Normal sinus rhythm. Stress ECG No abnormal ST/T wave changes with exercise. Arrhythmias None. Report Signatures
[2021-07-09 07:48] LABS: Anion Gap 9 mmol/L (8-16); Blood Urea Nitrogen 8 mg/dL (7-17); Calcium 8.5 mg/dL (8.4-10.2); Carbon Dioxide 21 mmol/L (22-30); Chloride 105 mmol/L (98-107); Estimated CRCL calculation 57 ml/min; Estimated Glomerular Filt Rate > 60; Glucose 102 mg/dL (65-110); Potassium 3.2 mmol/L (3.4-5.0); Sodium 135 mmol/L (137-145)
[2021-07-09] MEDS: MEGESTROL ACETATE (*CHEMO) ORAL SUSP 40 MG/ML SYR 800 MG PO (08:03)
[2021-07-09] MEDS: ASPIRIN 81 MG CHEWABLE TABLET PO (08:03)
[2021-07-09] MEDS: ESCITALOPRAM OXALATE 10 MG TABLET PO (08:04)
[2021-07-09] MEDS: SODIUM CHLORIDE 500 MG TABLET PO ×2 (08:04→17:18)
[2021-07-09] MEDS: ENOXAPARIN 40 MG/0.4 ML SYRINGE SUB-Q (08:04)
[2021-07-09] MEDS: busPIRone HCL 5 MG TABLET 15 MG PO ×2 (08:04→17:18)
[2021-07-09] MEDS: LABETALOL HCL 50 MG TABLET PO (08:04)
[2021-07-09] MEDS: PANTOPRAZOLE 40 MG TABLET PO (08:04)
[2021-07-09] MEDS: MELOXICAM 7.5 MG TABLET 15 MG PO (08:04)
[2021-07-09] MEDS: POTASSIUM CHLORIDE 20 MEQ PACKET (FOR LIQUID) PO (08:05)
--- NOTE | 2021-07-09 09:29 | PM.PNCARD ---
Progress Note: A&P Assessment and Plan (1) Elevated troponin: Code(s): R77.8 - Other specified abnormalities of plasma proteins Status: Acute Assessment and Plan: Patient has mildly elevated troponin that was essentially flat. Her EKG did not have any ischemic looking changes. Denies any chest pain or shortness of breath. She had plans for lexiscan stress test today but was extremely hypotensive, per report nearly unresponsive prior to lexiscan in radiology. Rapid response called and stress test cancelled. Echo showed normal LVEF, grade I diastolic dysfunction, no significant valvular pathology Underwent stress test this morning, further recs to follow review of those results. (2) Pericardial effusion: Code(s): I31.3 - Pericardial effusion (noninflammatory) Status: Acute Assessment and Plan: Small - moderate pericardial effusion by surface echo. She's hemodynamically stable, no evidence of tamponade physiology on echo. Will repeat echo as outpatient to monitor. (3) Hyponatremia: Code(s): E87.1 - Hypo-osmolality and hyponatremia Status: Acute Assessment and Plan: Improved. Subjective Date/time seen: 07/09/21 09:29 Interval history: She had what sounds like a vasovagal near syncopal episode in radiology prior to her lexiscan this morning. Patient is unable to give me any details surrounding this event - she does respond to some questions but is not oriented. Apparently this has been the patient's baseline. 07/09/21 - Patient is more alert today but still confused. She denies any chest pain, shortness of breath, or palpitations. Apparently she has had some urinary incontinence Review of Systems Review of Systems: All systems reviewed & are unremarkable except as noted in HPI and below ROS unobtainable: Yes unobtainable due to mental status Exam Const: General: comfortable and no acute distress Other: Able to lie flat HENMT: General nose exam: Normal nares present and no epistaxis Mouth: Yes moist mucous membranes Eyes: Sclera: sclerae normal Pupils: Equal, round and reactive pupils present Neck: Neck: supple and no JVD Carotids: no bruits Resp: Auscultation: clear to auscultation bilaterally and lung sounds not diminished Other: No chest wall tenderness Cardio: Rate: regular rate Rhythm: regular rhythm Heart sounds: no gallops, no murmurs and no rubs GI: Auscultation: normal bowel sounds Skin: General skin exam: normal color, rashes and/or lesions noted and no erythema Other: Warm Neuro: Cranial nerves: Yes Equal, round and reactive pupils present Speech: normal speech Motor exam (neuro): 5/5 motor strength present throughout Other: No obvious focal deficit or facial asymmetry Extrem: General: no edema Other: Normal capillary refills Intact distal pulses. Psych: Affect: Blunted affect present Objective Data Vital Signs Vital Signs: Vital Signs - 24 hr 07/08/21 09:39 07/08/21 10:51 07/08/21 14:12 Temperature 36.4 C L Pulse Rate 66 71 74 Respiratory Rate 14 12 14 Blood Pressure 170/68 H 110/72 151/75 H Pulse Oximetry 100 97 100 07/08/21 17:45 07/08/21 17:48 07/08/21 17:52 Temperature Pulse Rate 79 79 91 Respiratory Rate Blood Pressure 162/78 H 118/68 82/58 L Pulse Oximetry 07/08/21 20:09 07/08/21 23:58 07/09/21 05:15 Temperature 36.8 C 36.8 C 36.8 C Pulse Rate 91 80 83 Respiratory Rate 16 16 16 Blood Pressure 183/83 H 177/83 H 187/92 H Pulse Oximetry 98 98 99 07/09/21 08:00 07/09/21 08:04 Temperature 36.3 C L Pulse Rate 105 H 105 H Respiratory Rate 18 Blood Pressure 169/94 H Pulse Oximetry 100 Intake/Output Intake/Output: Intake & Output 07/06/21 07/07/21 07/08/21 07/09/21 23:59 23:59 23:59 23:59 Intake Total 2560 3610 3040 800 Output Total 2600 1650 2125 Balance -40 9424 315 800 Meds/Results Medications: Active Medications Generic Name Dose Route Start Last Admin
--- NOTE | 2021-07-09 11:11 | PM.IMPN ---
Progress Note: A&P Assessment and Plan (1) Elevated troponin: Code(s): R77.8 - Other specified abnormalities of plasma proteins Status: Acute Assessment and Plan: Cardiology has been consulted. Stress test was normal (2) Psychiatric disorder: Code(s): F99 - Mental disorder, not otherwise specified Status: Acute Assessment and Plan: Patient is on multiple psychiatric medications. mood is stable today (3) Hypertension: Code(s): I10 - Essential (primary) hypertension Status: Acute Assessment and Plan: Pt is hypotensive Blood pressure medications halved pt is running orthostatic today continue iv fluids and orthostatic monitoring hopeful dc when bp are better. Hold Bp medications (4) Hyponatremia: Code(s): E87.1 - Hypo-osmolality and hyponatremia Status: Resolved Assessment and Plan: Sodium is much improved. Her mental status is better. Pt is eating more since megace started. Subjective Date/time seen: 07/09/21 11:11 Interval history: 55-year-old female who presented to an outside emergency room with complaints of weakness per outside emergency room records. At this time patient is telling me that she went to the emergency room for emotional distress and she states that she is under a large amount of stress at home and has lost 100 lb in 4 months and she needed help with her finding assistance for her distress. Pt was found to have high troponin and low sodium on admission. Pt Bp are running low today 82/59, pt is orthostatic. Stress test today was normal. sodium is much better Review of Systems Review of Systems: All systems reviewed & are unremarkable except as noted in HPI and below Exam Narrative: Constitutional: Patient looks tired and weak dizzy on standing Lungs: Lung sounds are clear to auscultation bilaterally. Cardiovascular: Apical pulse is regular rate and rhythm. S1-S2 noted, no S3 or S4 noted. No gallops, murmurs, or rubs noted. Abdomen: Soft, round, and nontender. Extremities: No edema. Nontender. Skin: No rashes or lesions. Warm and dry. Skin is intact. Neurological: No focal neurological deficits. Cranial nerves II-XII grossly intact. Objective Data Vital Signs Vital Signs: Vital Signs - 24 hr 07/08/21 14:12 07/08/21 17:45 07/08/21 17:48 Temperature 36.4 C L Pulse Rate 74 79 79 Respiratory Rate 14 Blood Pressure 151/75 H 162/78 H 118/68 Pulse Oximetry 100 07/08/21 17:52 07/08/21 20:09 07/08/21 23:58 Temperature 36.8 C 36.8 C Pulse Rate 91 91 80 Respiratory Rate 16 16 Blood Pressure 82/58 L 183/83 H 177/83 H Pulse Oximetry 98 98 07/09/21 05:15 07/09/21 08:00 07/09/21 08:04 Temperature 36.8 C 36.3 C L Pulse Rate 83 105 H 105 H Respiratory Rate 16 18 Blood Pressure 187/92 H 169/94 H Pulse Oximetry 99 100 07/09/21 10:27 07/09/21 10:30 Temperature Pulse Rate 82 88 Respiratory Rate Blood Pressure 145/84 H 82/59 L Pulse Oximetry Intake/Output Intake/Output: Intake & Output 07/06/21 07/07/21 07/08/21 07/09/21 23:59 23:59 23:59 23:59 Intake Total 2560 3610 3040 800 Output Total 2600 1650 2125 Balance -40 1960 915 800 Meds/Results Medications: Active Medications Generic Name Dose Route Start Last Admin Trade Name Freq PRN Reason Stop Dose Admin Acetaminophen 650 mg 07/05/21 22:16 Acetaminophen 325 Mg Tablet PO Q4H PRN Mild Pain (1-3) or Fever Amlodipine Besylate 5 mg 07/06/21 09:00 07/06/21 12:04 Amlodipine Besylate 5 Mg Tablet PO Not Given DAILY HANNAH Aspirin 81 mg 07/07/21 08:00 07/09/21 08:03 Aspirin 81 Mg Chewable Tablet PO 81 mg DAILY@0800 HANNAH Administration Atorvastatin Calcium 80 mg 07/06/21 00:05 07/08/21 20:14 Atorvastatin 40 Mg Tablet PO 80 mg HS HANNAH Administration Bisacodyl 5 mg 07/05/21 22:16 Bisacodyl 5 Mg Tablet Ec PO DAILY PRN Constipation Buspirone H
[2021-07-09] MEDS: SODIUM CHLORIDE 0.9% IV 1,000 ML 75 ML IV CONT (11:39)
[2021-07-09] MEDS: POTASSIUM CHLORIDE 20 MEQ PACKET (FOR LIQUID) 40 MEQ PO (11:40)
--- NOTE | 2021-07-09 13:03 | PCOTNOTE ---
Attempted to see patient this pm, however patient refused stating, Not right now ma'am.
[2021-07-09] MEDS: MIRTAZAPINE 15 MG TABLET PO (20:23)
[2021-07-09] MEDS: ATORVASTATIN 40 MG TABLET 80 MG PO (20:23)
[2021-07-09] MEDS: MELATONIN 3 MG TABLET PO (20:23)
[2021-07-10] VITALS (8 sets, daily range): BP systolic 99–171; BP diastolic 56–86; PULSE 80–95; RESP 16–18; TEMP 36.8–37.2; O2SAT 98–100
[2021-07-10] MEDS: SODIUM CHLORIDE 0.9% IV 1,000 ML 70 ML IV CONT (01:41)
[2021-07-10] MEDS: ASPIRIN 81 MG CHEWABLE TABLET PO (08:06)
[2021-07-10] MEDS: MEGESTROL ACETATE (*CHEMO) ORAL SUSP 40 MG/ML SYR 800 MG PO (08:06)
[2021-07-10] MEDS: MELOXICAM 7.5 MG TABLET 15 MG PO (08:07)
[2021-07-10] MEDS: busPIRone HCL 5 MG TABLET 15 MG PO ×2 (08:07→16:15)
[2021-07-10] MEDS: ENOXAPARIN 40 MG/0.4 ML SYRINGE SUB-Q (08:07)
[2021-07-10] MEDS: PANTOPRAZOLE 40 MG TABLET PO (08:08)
[2021-07-10] MEDS: POTASSIUM CHLORIDE 20 MEQ PACKET (FOR LIQUID) PO (08:08)
[2021-07-10] MEDS: ESCITALOPRAM OXALATE 10 MG TABLET PO (08:08)
[2021-07-10] MEDS: SODIUM CHLORIDE 500 MG TABLET PO (08:08)
--- NOTE | 2021-07-10 11:59 | PC.NURSE ---
Veterinary Anatomist reviewed and agrees with student nurse charting and assessment.
--- NOTE | 2021-07-10 15:22 | PM.IMPN ---
Progress Note: A&P Assessment and Plan (1) Elevated troponin: Code(s): R77.8 - Other specified abnormalities of plasma proteins Status: Acute Assessment and Plan: Cardiology has been consulted. Stress test was normal (2) Psychiatric disorder: Code(s): F99 - Mental disorder, not otherwise specified Status: Acute Assessment and Plan: Patient is on multiple psychiatric medications. mood is stable today (3) Hypertension: Code(s): I10 - Essential (primary) hypertension Status: Acute Assessment and Plan: Pt is hypotensive Blood pressure medications halved pt is running orthostatic today add midodrine ? psych meds causing postural hypotension (4) Hyponatremia: Code(s): E87.1 - Hypo-osmolality and hyponatremia Status: Resolved Assessment and Plan: Sodium is much improved. Her mental status is better. Pt is eating more since megace started. Subjective Date/time seen: 07/10/21 15:22 Interval history: 55-year-old female who presented to an outside emergency room with complaints of weakness per outside emergency room records. At this time patient is telling me that she went to the emergency room for emotional distress and she states that she is under a large amount of stress at home and has lost 100 lb in 4 months and she needed help with her finding assistance for her distress. Pt was found to have high troponin and low sodium on admission. 07/09 Pt Bp are running low today 82/59, pt is orthostatic. Stress test today was normal. sodium is much better 07/10 Pt is still orthostatic today, pt dizzy on standing, consider adding midodrine to correct orthostatics, pt had fluid hydration sodium is much better now, can stop fluids. Review of Systems Review of Systems: All systems reviewed & are unremarkable except as noted in HPI and below Exam Narrative: Constitutional: Patient looks tired and weak dizzy on standing Lungs: Lung sounds are clear to auscultation bilaterally. Cardiovascular: Apical pulse is regular rate and rhythm. S1-S2 noted, no S3 or S4 noted. No gallops, murmurs, or rubs noted. Abdomen: Soft, round, and nontender. Extremities: No edema. Nontender. Skin: No rashes or lesions. Warm and dry. Skin is intact. Neurological: No focal neurological deficits. Cranial nerves II-XII grossly intact. Objective Data Vital Signs Vital Signs: Vital Signs - 24 hr 07/09/21 19:42 07/09/21 19:43 07/09/21 19:53 Temperature 36.8 C Pulse Rate 97 Respiratory Rate 16 Blood Pressure 118/60 118/60 90/53 L Pulse Oximetry 99 07/10/21 06:00 07/10/21 08:00 07/10/21 09:10 Temperature 37.0 C Pulse Rate 95 84 Respiratory Rate 16 Blood Pressure 133/77 153/75 H Pulse Oximetry 99 98 07/10/21 09:12 07/10/21 09:14 07/10/21 13:20 Temperature 37.2 C Pulse Rate 87 92 80 Respiratory Rate 18 Blood Pressure 130/78 99/69 L 171/86 H Pulse Oximetry 100 Intake/Output Intake/Output: Intake & Output 07/07/21 07/08/21 07/09/21 07/10/21 23:59 23:59 23:59 23:59 Intake Total 3610 3040 2175 1800 Output Total 1650 2125 300 Balance 3763 656 2568 1500 Meds/Results Medications: Active Medications Generic Name Dose Route Start Last Admin Trade Name Freq PRN Reason Stop Dose Admin Acetaminophen 650 mg 07/05/21 22:16 Acetaminophen 325 Mg Tablet PO Q4H PRN Mild Pain (1-3) or Fever Amlodipine Besylate 5 mg 07/06/21 09:00 07/06/21 12:04 Amlodipine Besylate 5 Mg Tablet PO Not Given DAILY [facility] Aspirin 81 mg 07/07/21 08:00 07/10/21 08:06 Aspirin 81 Mg Chewable Tablet PO 81 mg DAILY@0800 [facility] Administration Atorvastatin Calcium 80 mg 07/06/21 00:05 07/09/21 20:23 Atorvastatin 40 Mg Tablet PO 80 mg HS [facility] Administration Bisacodyl 5 mg 07/05/21 22:16 Bisacodyl 5 Mg Tablet Ec PO DAILY PRN Constipation Buspirone HCl 15 mg 07/06/21 09:00 07/10/21 08:07
[2021-07-10] MEDS: MIDODRINE HCL 2.5 MG TABLET PO (16:15)
[2021-07-10] MEDS: LORATADINE 10 MG TABLET PO (17:25)
[2021-07-10] MEDS: ATORVASTATIN 40 MG TABLET 80 MG PO (21:33)
[2021-07-10] MEDS: MIRTAZAPINE 15 MG TABLET PO (21:33)
[2021-07-11] VITALS (8 sets, daily range): BP systolic 81–153; BP diastolic 56–90; PULSE 64–128; RESP 16–20; TEMP 36.1–37.1; O2SAT 96–99
[2021-07-11] MEDS: ASPIRIN 81 MG CHEWABLE TABLET PO (08:02)
[2021-07-11] MEDS: MELOXICAM 7.5 MG TABLET 15 MG PO (08:02)
[2021-07-11] MEDS: ESCITALOPRAM OXALATE 10 MG TABLET PO (08:03)
[2021-07-11] MEDS: MIDODRINE HCL 2.5 MG TABLET PO ×2 (08:03→16:26)
[2021-07-11] MEDS: amLODIPine BESYLATE 5 MG TABLET PO (08:03)
[2021-07-11] MEDS: PANTOPRAZOLE 40 MG TABLET PO (08:03)
[2021-07-11] MEDS: POTASSIUM CHLORIDE 20 MEQ PACKET (FOR LIQUID) 40 MEQ PO (08:03)
[2021-07-11] MEDS: MEGESTROL ACETATE (*CHEMO) ORAL SUSP 40 MG/ML SYR 800 MG PO (08:03)
[2021-07-11] MEDS: busPIRone HCL 5 MG TABLET 15 MG PO ×2 (08:03→16:26)
[2021-07-11] MEDS: ENOXAPARIN 40 MG/0.4 ML SYRINGE SUB-Q (08:03)
[2021-07-11 08:23] LABS: Anion Gap 8 mmol/L (8-16); Blood Urea Nitrogen 10 mg/dL (7-17); Calcium 8.4 mg/dL (8.4-10.2); Carbon Dioxide 21 mmol/L (22-30); Chloride 105 mmol/L (98-107); Estimated CRCL calculation 57 ml/min; Estimated Glomerular Filt Rate > 60; Glucose 85 mg/dL (65-110); Potassium 3.5 mmol/L (3.4-5.0); Sodium 134 mmol/L (137-145)
--- NOTE | 2021-07-11 10:55 | PCPTNOTE ---
Patient refused treatment this session due to feeling nauseous at this time.
--- NOTE | 2021-07-11 12:18 | PM.IMPN ---
Progress Note: A&P Additional Plan (1) Acute on Chronic hyponatremia: Assessment and Plan: Sodium level is improving. Her mental status is better. Pt is eating more since megace started. Restarted PO sodium chloride 500mg BID tablets, check BMP tomorrow morning. (2) Elevated troponin on admission: Assessment and Plan: Cardiology was consulted at presentation. Stress test was normal and Cardiology has signed off. Patient denies chest pain and dyspnea. (3) Psychiatric disorder: Assessment and Plan: Patient is on multiple psychiatric medications. Mood is stable today (4) Hypertension: Assessment and Plan: Pt is hypotensive Blood pressure medications halved pt is running orthostatic today add midodrine ? psych meds causing postural hypotension (5) Physical deconditioning: -PT/OT is following. -I was told by her nurse that the patient refused PT/OT. -She's also refusing to move or get out of bed. Time Spent With Patient Time: 25 minutes Time with patient: less than 15 minutes Subjective Date/time seen: 07/11/21 12:18 Patient seen lying comfortably in bed, she denied having any complains. Stated she feels she is getting better but just needs some time. Review of Systems Constitutional: Constitutional: Reports no additional constitutional complaints Cardiovascular: Cardiovascular: Reports no additional cardiovascular complaints Respiratory: Respiratory: Reports no additional respiratory complaints Gastrointestinal: Gastrointestinal: Reports no additional gastrointestinal complaints Exam HENMT: Head: normal to inspection Resp: Effort & Inspection: normal respiratory effort and able to speak in complete sentences Auscultation: clear to auscultation bilaterally Cardio: Rate: regular rate Rhythm: regular rhythm Heart sounds: S1 normal heart sound present and S2 normal heart sound present GI: Inspection: normal to inspection GI Palp: Yes Soft to palpation Auscultation: normoactive bowel sounds Objective Data Vital Signs Vital Signs: Vital Signs - 24 hr 07/10/21 13:20 07/10/21 19:43 07/10/21 19:44 Temperature 98.9 F 98.3 F Pulse Rate 80 83 Respiratory Rate 18 16 Blood Pressure 171/86 H 167/84 H 105/56 L Pulse Oximetry 100 98 07/11/21 05:21 07/11/21 07:58 Temperature 98.2 F 98.7 F Pulse Rate 76 97 Respiratory Rate 16 16 Blood Pressure 149/86 H 153/83 H Pulse Oximetry 96 98 Intake/Output Intake/Output: Intake & Output 07/08/21 07/09/21 07/10/21 07/11/21 23:59 23:59 23:59 23:59 Intake Total 3040 2175 2800 300 Output Total 2125 300 300 Balance 915 2175 2500 0 Meds/Results Medications: Active Medications Generic Name Dose Route Start Last Admin Trade Name Giovaniq PRN Reason Stop Dose Admin Acetaminophen 650 mg 07/05/21 22:16 Acetaminophen 325 Mg Tablet PO Q4H PRN Mild Pain (1-3) or Fever Amlodipine Besylate 5 mg 07/06/21 09:00 07/11/21 08:03 Amlodipine Besylate 5 Mg Tablet PO 5 mg DAILY [facility] Administration Aspirin 81 mg 07/07/21 08:00 07/11/21 08:02 Aspirin 81 Mg Chewable Tablet PO 81 mg DAILY@0800 [facility] Administration Atorvastatin Calcium 80 mg 07/06/21 00:05 07/10/21 21:33 Atorvastatin 40 Mg Tablet PO 80 mg HS [facility] Administration Bisacodyl 5 mg 07/05/21 22:16 Bisacodyl 5 Mg Tablet Ec PO DAILY PRN Constipation Buspirone HCl 15 mg 07/06/21 09:00 07/11/21 08:03 Buspirone Hcl 5 Mg Tablet PO 15 mg BID [facility] Administration Enoxaparin Sodium 40 mg 07/06/21 09:00 07/11/21 08:03 Enoxaparin 40 Mg/0.4 Ml Syringe SUB-Q 40 mg DAILY [facility] Administration Escitalopram Oxalate 10 mg 07/06/21 09:00 07/11/21 08:03 Escitalopram Oxalate 10 Mg Tablet PO 10 mg DAILY [facility] Administration Loratadine 10 mg 07/10/21 16:20 07/10/21 17:25 Loratadine 10 Mg Tablet PO 10 mg QAM PRN Administration Nasal Congestion Megestrol Acetate 800 mg 07/06/21 17:00 07/11/21 08:03 Megestrol Marty
--- NOTE | 2021-07-11 12:19 | PM.IMPN ---
Subjective Date/time seen: 07/11/21 12:19 Objective Data Vital Signs Vital Signs: Vital Signs - 24 hr 07/10/21 13:20 07/10/21 19:43 07/10/21 19:44 Temperature 98.9 F 98.3 F Pulse Rate 80 83 Respiratory Rate 18 16 Blood Pressure 171/86 H 167/84 H 105/56 L Pulse Oximetry 100 98 07/11/21 05:21 07/11/21 07:58 Temperature 98.2 F 98.7 F Pulse Rate 76 97 Respiratory Rate 16 16 Blood Pressure 149/86 H 153/83 H Pulse Oximetry 96 98 Intake/Output Intake/Output: Intake & Output 07/08/21 07/09/21 07/10/21 07/11/21 23:59 23:59 23:59 23:59 Intake Total 3040 2175 2800 300 Output Total 2125 300 300 Balance 915 2175 2500 0 Meds/Results Medications: Active Medications Generic Name Dose Route Start Last Admin Trade Name Freq PRN Reason Stop Dose Admin Acetaminophen 650 mg 07/05/21 22:16 Acetaminophen 325 Mg Tablet PO Q4H PRN Mild Pain (1-3) or Fever Amlodipine Besylate 5 mg 07/06/21 09:00 07/11/21 08:03 Amlodipine Besylate 5 Mg Tablet PO 5 mg DAILY [facility] Administration Aspirin 81 mg 07/07/21 08:00 07/11/21 08:02 Aspirin 81 Mg Chewable Tablet PO 81 mg DAILY@0800 [facility] Administration Atorvastatin Calcium 80 mg 07/06/21 00:05 07/10/21 21:33 Atorvastatin 40 Mg Tablet PO 80 mg HS [facility] Administration Bisacodyl 5 mg 07/05/21 22:16 Bisacodyl 5 Mg Tablet Ec PO DAILY PRN Constipation Buspirone HCl 15 mg 07/06/21 09:00 07/11/21 08:03 Buspirone Hcl 5 Mg Tablet PO 15 mg BID [facility] Administration Enoxaparin Sodium 40 mg 07/06/21 09:00 07/11/21 08:03 Enoxaparin 40 Mg/0.4 Ml Syringe SUB-Q 40 mg DAILY [facility] Administration Escitalopram Oxalate 10 mg 07/06/21 09:00 07/11/21 08:03 Escitalopram Oxalate 10 Mg Tablet PO 10 mg DAILY [facility] Administration Loratadine 10 mg 07/10/21 16:20 07/10/21 17:25 Loratadine 10 Mg Tablet PO 10 mg QAM PRN Administration Nasal Congestion Megestrol Acetate 800 mg 07/06/21 17:00 07/11/21 08:03 Megestrol Acetate (*Chemo) Oral Susp 40 Mg/Ml Syr PO 800 mg DAILY@0800 [facility] Administration Meloxicam 15 mg 07/06/21 08:00 07/11/21 08:02 Meloxicam 7.5 Mg Tablet PO 15 mg DAILY@0800 [facility] Administration Midodrine 2.5 mg 07/10/21 17:00 07/11/21 08:03 Midodrine Hcl 2.5 Mg Tablet PO 2.5 mg BID [facility] Administration Mirtazapine 15 mg 07/06/21 00:05 07/10/21 21:33 Mirtazapine 15 Mg Tablet PO 15 mg HS [facility] Administration Ondansetron HCl 4 mg 07/05/21 22:16 07/06/21 03:25 Ondansetron Inj 4 Mg/2 Ml Vial IV PUSH 4 mg Q6H PRN Administration Nausea And Vomiting Pantoprazole Sodium 40 mg 07/06/21 09:00 07/11/21 08:03 Pantoprazole 40 Mg Tablet PO 40 mg QAM [facility] Administration Perflutren Lipid Microsphere 0 ml 07/06/21 13:07 Perflutren Lipid Microspheres 1.5 Ml Vial Diluted To 10 Ml Total Volume IV PUSH ONCE PRN adequate visualization Protocol Potassium Chloride 40 meq 07/11/21 09:00 07/11/21 08:03 Potassium Chloride 20 Meq Packet (For Liquid) PO 40 meq DAILY [facility] Administration Sodium Chloride 1 gm 07/11/21 17:00 Sodium Chloride 1 Gm Tablet PO BID [facility] Radiology Results: ITS Impressions Lexiscan Stress Test 07/09/21 10:36 IMPRESSION: 1. No definite ischemia or infarct. Breast attenuation artifact decreases sensitivity and specificity. 2. Normal left ventricular ejection fraction measuring >70%. Labs Labs: Laboratory Results - last 24 hr 07/11/21 07:52 Sodium 134 L Potassium 3.5 Chloride 105 Carbon Dioxide 21 L Anion Gap 8 BUN 10 Creatinine 0.60 L Estim Creat Clear Calc 57 Estimated GFR > 60 Glucose 85 Calcium 8.4 Quality VTE Prophylaxis VTE prophylaxis: mechanical ordered and pharmacologic ordered
--- NOTE | 2021-07-11 12:59 | PCNFU ---
Nutrition Follow-Up Complete: Unintentional weight loss related to suboptimal po intake and poor appetite as evidenced by hx of significant wt loss and reported intake. Goal: PO intake to be greater than or equal to 75% of meals Pt is progressing towards goal. Pt current nutrition is Diabetic consistent carbohydrate diet, Glucerna shakes BID. Nutrition recommendation: Continue with current plan of care. Last recorded weight is 53.5 kg - 2 kg. Bowel Motility: +BM 07/10 Labs Reviewed: Na:134, Cr:0.6 Meds Noted: Megace, Remeron Skin: WNL Additional Notes: Pt upgraded to diabetic diet. Appetite has increased with Megace, needs assistance from nursing, overall intake is still poor. Monitor intake, wt, labs. Follow up in 5 days.
--- NOTE | 2021-07-11 13:38 | PCNSR ---
On 07/11/21, the student, Alma Delgado, provided care and completed [facility] documentation on this patient. I have reviewed the student's documentation and agree with the findings.
--- NOTE | 2021-07-11 14:01 | PC.NURSE ---
On 07/11/21, the students, [Radha Bradford, Ced Mejia], provided care and completed [facility] documentation on this patient. I have reviewed the students' documentation and agree with the findings.
[2021-07-11] MEDS: SODIUM CHLORIDE 1 GM TABLET PO (16:26)
[2021-07-11] MEDS: ATORVASTATIN 40 MG TABLET 80 MG PO (21:11)
[2021-07-11] MEDS: MIRTAZAPINE 15 MG TABLET PO (22:14)
[2021-07-12] VITALS (9 sets, daily range): BP systolic 75–173; BP diastolic 58–91; PULSE 81–103; RESP 12–21; TEMP 36.1–37.1; O2SAT 99–100
[2021-07-12 06:20] LABS: Anion Gap 9 mmol/L (8-16); Blood Urea Nitrogen 11 mg/dL (7-17); Carbon Dioxide 23 mmol/L (22-30); Chloride 104 mmol/L (98-107); Estimated CRCL calculation 50 ml/min; Estimated Glomerular Filt Rate > 60; Glucose 85 mg/dL (65-110); Potassium 3.3 mmol/L (3.4-5.0); Sodium 136 mmol/L (137-145)
--- NOTE | 2021-07-12 08:01 | PM.IMPN ---
Progress Note: A&P Additional Plan (1) Acute on Chronic hyponatremia: Assessment and Plan: Sodium level is improving. Her mental status is better. Pt is eating more since megace started. -sodium now at 136 from 134 -continue PO sodium chloride 500mg BID tablets, check BMP tomorrow morning. (2) Acute hypokalemia: K of 3.3 PO 20meq KCl given once on top of her PO 40meq KCl follow BMP tomorrow. (3) Elevated troponin on admission: Assessment and Plan: Cardiology was consulted at presentation. Stress test was normal and Cardiology has signed off. Patient denies chest pain and dyspnea. (4) Psychiatric disorder: Assessment and Plan: Patient is on multiple psychiatric medications. Mood is stable today (5) Hypertension: Assessment and Plan: Pt is hypotensive Blood pressure medications halved pt is running orthostatic today add midodrine ? psych meds causing postural hypotension. (6) Physical deconditioning: -PT/OT is following. -patient intermittently refusing PT/OT, also sometimes refuses to move or get out of bed for her nurse. (7) Disposition: home in 1-2 days. Time Spent With Patient Time with patient: 15 - 25 minutes Subjective Date/time seen: 07/12/21 08:01 Patient seen sitting up in bed eating her lunch,, stated she feels well and denied having any complains. Review of Systems Review of Systems: All systems reviewed & are unremarkable except as noted in HPI and below Exam Const: General: comfortable, no acute distress and alert Resp: Effort & Inspection: normal respiratory effort and able to speak in complete sentences Auscultation: clear to auscultation bilaterally Cardio: Heart sounds: S1 normal heart sound present and S2 normal heart sound present GI: GI Palp: Yes Soft to palpation and No Tenderness to palpation present (GI) Auscultation: normoactive bowel sounds Objective Data Vital Signs Vital Signs: Vital Signs - 24 hr 07/11/21 14:20 07/11/21 14:23 07/11/21 14:31 Temperature 98.5 F Pulse Rate 64 Respiratory Rate 16 Blood Pressure 95/66 L 81/56 L 95/66 L Pulse Oximetry 97 07/11/21 22:00 07/11/21 22:05 07/11/21 22:10 Temperature 97.3 F L 97.0 F L 97.1 F L Pulse Rate 86 109 H 128 H Respiratory Rate 20 20 20 Blood Pressure 149/76 H 140/90 107/74 Pulse Oximetry 99 98 98 07/12/21 06:00 Temperature 97.3 F L Pulse Rate 103 H Respiratory Rate 20 Blood Pressure 173/90 H Pulse Oximetry 99 Intake/Output Intake/Output: Intake & Output 07/09/21 07/10/21 07/11/21 07/12/21 23:59 23:59 23:59 23:59 Intake Total 2175 2800 1140 200 Output Total 300 300 Balance 2175 2500 840 200 Meds/Results Medications: Active Medications Generic Name Dose Route Start Last Admin Trade Name Freq PRN Reason Stop Dose Admin Acetaminophen 650 mg 07/05/21 22:16 Acetaminophen 325 Mg Tablet PO Q4H PRN Mild Pain (1-3) or Fever Amlodipine Besylate 5 mg 07/06/21 09:00 07/11/21 08:03 Amlodipine Besylate 5 Mg Tablet PO 5 mg DAILY [facility] Administration Aspirin 81 mg 07/07/21 08:00 07/11/21 08:02 Aspirin 81 Mg Chewable Tablet PO 81 mg DAILY@0800 [facility] Administration Atorvastatin Calcium 80 mg 07/06/21 00:05 07/11/21 21:11 Atorvastatin 40 Mg Tablet PO 80 mg HS [facility] Administration Bisacodyl 5 mg 07/05/21 22:16 Bisacodyl 5 Mg Tablet Ec PO DAILY PRN Constipation Buspirone HCl 15 mg 07/06/21 09:00 07/11/21 16:26 Buspirone Hcl 5 Mg Tablet PO 15 mg BID [facility] Administration Enoxaparin Sodium 40 mg 07/06/21 09:00 07/11/21 08:03 Enoxaparin 40 Mg/0.4 Ml Syringe SUB-Q 40 mg DAILY [facility] Administration Escitalopram Oxalate 10 mg 07/06/21 09:00 07/11/21 08:03 Escitalopram Oxalate 10 Mg Tablet PO 10 mg DAILY [facility] Administration Loratadine 10 mg 07/10/21 16:20 07/10/21 17:25 Loratadine 10 Mg Tablet PO 10 mg QAM PRN Administration Nasal Congestion Megestrol Acetate 800 mg
[2021-07-12] MEDS: ENOXAPARIN 40 MG/0.4 ML SYRINGE SUB-Q (08:22)
[2021-07-12] MEDS: busPIRone HCL 5 MG TABLET 15 MG PO ×2 (08:22→16:39)
[2021-07-12] MEDS: ASPIRIN 81 MG CHEWABLE TABLET PO (08:23)
[2021-07-12] MEDS: MEGESTROL ACETATE (*CHEMO) ORAL SUSP 40 MG/ML SYR 800 MG PO (08:23)
[2021-07-12] MEDS: MELOXICAM 7.5 MG TABLET 15 MG PO (08:24)
[2021-07-12] MEDS: SODIUM CHLORIDE 1 GM TABLET PO ×2 (08:24→16:40)
[2021-07-12] MEDS: MIDODRINE HCL 2.5 MG TABLET PO ×2 (08:25→16:41)
[2021-07-12] MEDS: amLODIPine BESYLATE 5 MG TABLET PO (08:25)
[2021-07-12] MEDS: PANTOPRAZOLE 40 MG TABLET PO (08:25)
[2021-07-12] MEDS: ESCITALOPRAM OXALATE 10 MG TABLET PO (08:25)
[2021-07-12] MEDS: POTASSIUM CHLORIDE 20 MEQ PACKET (FOR LIQUID) PO (08:38)
[2021-07-12] MEDS: POTASSIUM CHLORIDE 20 MEQ PACKET (FOR LIQUID) 40 MEQ PO (08:38)
--- NOTE | 2021-07-12 12:33 | PC.NURSE ---
On 07/12/21, the student, [Sachin Alvarez], provided care and completed [facility] documentation on this patient. I have reviewed the student's documentation and agree with the findings.
--- NOTE | 2021-07-12 14:15 | PCPTNOTE ---
The patient treatment was not able to be completed. Pt stated that she can't do anything now because she is too tired. Will plan to continue treatment per plan of care.
[2021-07-12] MEDS: ATORVASTATIN 40 MG TABLET 80 MG PO (20:25)
[2021-07-12] MEDS: MIRTAZAPINE 15 MG TABLET PO (20:26)
[2021-07-13 06:00] VITALS: BP 143/76; PULSE 91; RESP 20; TEMP 36.7; O2SAT 99
[2021-07-13 06:00] LABS: Anion Gap 5 mmol/L (8-16); Blood Urea Nitrogen 14 mg/dL (7-17); Calcium 8.8 mg/dL (8.4-10.2); Carbon Dioxide 25 mmol/L (22-30); Chloride 104 mmol/L (98-107); Estimated CRCL calculation 44 ml/min; Estimated Glomerular Filt Rate > 60; Glucose 99 mg/dL (65-110); Potassium 3.3 mmol/L (3.4-5.0); Sodium 134 mmol/L (137-145)
--- NOTE | 2021-07-13 07:28 | PM.IMPN ---
Progress Note: A&P Additional Plan (1) Acute on Chronic hyponatremia: -her mental status is better. Pt is eating more since megace started. -sodium now at 134 from 136 -increase PO sodium chloride 1000mg to TID tablets, check BMP tomorrow morning. (2) Acute hypokalemia: persistent, K of 3.3--> managed with 60meq KCl yesterday--> repeat K is still 3.3 will replace with IV KCl 40meq on top of her home PO 40meq KCl. also replacing magnesium in order to improve the chances of her potassiumc orrecting. follow BMP tomorrow. (3) Elevated troponin on admission: Assessment and Plan: Cardiology was consulted at presentation. Stress test was normal and Cardiology has signed off. Patient denies chest pain and dyspnea. (4) Psychiatric disorder: Assessment and Plan: Patient is on multiple psychiatric medications. Mood is stable today (5) Hypertension: Assessment and Plan: Pt is hypotensive Blood pressure medications halved pt is running orthostatic today add midodrine ? psych meds causing postural hypotension. (6) Physical deconditioning: -PT/OT is following. -patient intermittently refusing PT/OT, also sometimes refuses to move or get out of bed for her nurse. (7) Disposition: possible discharge home tomorrow. Time Spent With Patient Time with patient: 15 - 25 minutes Subjective Date/time seen: 07/13/21 07:28 Patient seen sitting up in bed, she endorsed feeling better and had no new complains. She also expressed gratitude for the care being provided. Review of Systems Review of Systems: All systems reviewed & are unremarkable except as noted in HPI and below Exam Const: General: cooperative and comfortable Resp: Effort & Inspection: normal respiratory effort and able to speak in complete sentences Auscultation: clear to auscultation bilaterally Cardio: Rate: regular rate Rhythm: regular rhythm Heart sounds: S1 normal heart sound present and S2 normal heart sound present GI: Inspection: normal to inspection GI Palp: No abdominal tenderness and Yes Soft to palpation Auscultation: normal bowel sounds Extrem: General: normal to inspection and no clubbing, cyanosis or edema Objective Data Vital Signs Vital Signs: Vital Signs - 24 hr 07/12/21 08:43 07/12/21 10:15 07/12/21 10:17 Temperature Pulse Rate 86 92 Respiratory Rate 20 Blood Pressure 143/91 H 98/68 L Pulse Oximetry 99 07/12/21 10:19 07/12/21 13:02 07/12/21 22:00 Temperature 98.7 F 97.9 F Pulse Rate 88 91 81 Respiratory Rate 12 21 H Blood Pressure 75/58 L 122/66 148/84 H Pulse Oximetry 100 100 07/12/21 22:05 07/12/21 22:10 07/13/21 06:00 Temperature 98.1 F 97.0 F L 98.0 F Pulse Rate 93 102 H 91 Respiratory Rate 21 H 21 H 20 Blood Pressure 152/85 H 116/67 143/76 H Pulse Oximetry 100 100 99 Intake/Output Intake/Output: Intake & Output 07/10/21 07/11/21 07/12/21 07/13/21 23:59 23:59 23:59 23:59 Intake Total 2800 1140 1210 300 Output Total 300 300 300 Balance 2500 840 910 300 Meds/Results Medications: Active Medications Generic Name Dose Route Start Last Admin Trade Name Giovani PRN Reason Stop Dose Admin Acetaminophen 650 mg 07/05/21 22:16 Acetaminophen 325 Mg Tablet PO Q4H PRN Mild Pain (1-3) or Fever Amlodipine Besylate 5 mg 07/06/21 09:00 07/12/21 08:25 Amlodipine Besylate 5 Mg Tablet PO 5 mg DAILY [facility] Administration Aspirin 81 mg 07/07/21 08:00 07/12/21 08:23 Aspirin 81 Mg Chewable Tablet PO 81 mg DAILY@0800 [facility] Administration Atorvastatin Calcium 80 mg 07/06/21 00:05 07/12/21 20:25 Atorvastatin 40 Mg Tablet PO 80 mg HS [facility] Administration Bisacodyl 5 mg 07/05/21 22:16 Bisacodyl 5 Mg Tablet Ec PO DAILY PRN Constipation Buspirone HCl 15 mg 07/06/21 09:00 07/12/21 16:39 Buspirone Hcl 5 Mg Tablet PO 15 mg BID [facility] Administration Enoxaparin Sodium 40 mg 07/06/21 09:00 07/12/21 08:22 Enoxaparin 40 Mg/0.4 Ml Syringe
[2021-07-13] MEDS: MEGESTROL ACETATE (*CHEMO) ORAL SUSP 40 MG/ML SYR 800 MG PO (08:09)
[2021-07-13] MEDS: amLODIPine BESYLATE 5 MG TABLET PO (08:09)
[2021-07-13] MEDS: busPIRone HCL 5 MG TABLET 15 MG PO ×2 (08:09→17:01)
[2021-07-13] MEDS: MELOXICAM 7.5 MG TABLET 15 MG PO (08:09)
[2021-07-13] MEDS: ASPIRIN 81 MG CHEWABLE TABLET PO (08:09)
[2021-07-13] MEDS: MAGNESIUM SULF 4 GM/WATER100ML 4 GM/100 ML BAG IVPB (08:09)
[2021-07-13] MEDS: MIDODRINE HCL 2.5 MG TABLET PO ×2 (08:10→17:01)
[2021-07-13] MEDS: SODIUM CHLORIDE 1 GM TABLET PO ×3 (08:10→17:01)
[2021-07-13] MEDS: PANTOPRAZOLE 40 MG TABLET PO (08:10)
[2021-07-13] MEDS: ESCITALOPRAM OXALATE 10 MG TABLET PO (08:10)
[2021-07-13] MEDS: ENOXAPARIN 40 MG/0.4 ML SYRINGE SUB-Q (08:10)
[2021-07-13 08:13] VITALS: BP 110/65
[2021-07-13] MEDS: KCL 40 MEQ/WATER 100 ML 100 ML 25 ML IVPB (12:21)
[2021-07-13] MEDS: POTASSIUM CHLORIDE 20 MEQ PACKET (FOR LIQUID) 40 MEQ PO (13:34)
[2021-07-13] MEDS: POTASSIUM CHLORIDE 20 MEQ TABLET 40 MEQ PO (13:35)
[2021-07-13 14:00] VITALS: BP 107/65; PULSE 87; RESP 16; TEMP 36.5; O2SAT 99
[2021-07-13 20:17] VITALS: BP 148/78; PULSE 79; RESP 16; TEMP 36.7; O2SAT 98
[2021-07-13 20:20] VITALS: BP 117/76
[2021-07-13 20:23] VITALS: BP 107/54
[2021-07-13] MEDS: ATORVASTATIN 40 MG TABLET 80 MG PO (20:36)
[2021-07-13] MEDS: MIRTAZAPINE 15 MG TABLET PO (20:37)
[2021-07-14] VITALS (9 sets, daily range): BP systolic 84–136; BP diastolic 55–82; PULSE 82–110; RESP 14–18; TEMP 36.4–36.9; O2SAT 97–100
[2021-07-14 05:31] LABS: Anion Gap 7 mmol/L (8-16); Blood Urea Nitrogen 16 mg/dL (7-17); Calcium 8.9 mg/dL (8.4-10.2); Carbon Dioxide 21 mmol/L (22-30); Chloride 106 mmol/L (98-107); Estimated CRCL calculation 50 ml/min; Estimated Glomerular Filt Rate > 60; Glucose 89 mg/dL (65-110); Potassium 4.3 mmol/L (3.4-5.0); Sodium 134 mmol/L (137-145)
[2021-07-14] MEDS: MELOXICAM 7.5 MG TABLET 15 MG PO (08:05)
[2021-07-14] MEDS: ASPIRIN 81 MG CHEWABLE TABLET PO (08:05)
[2021-07-14] MEDS: MEGESTROL ACETATE (*CHEMO) ORAL SUSP 40 MG/ML SYR 800 MG PO (08:05)
[2021-07-14] MEDS: amLODIPine BESYLATE 5 MG TABLET PO (08:06)
[2021-07-14] MEDS: busPIRone HCL 5 MG TABLET 15 MG PO ×2 (08:06→17:06)
[2021-07-14] MEDS: POTASSIUM CHLORIDE 20 MEQ PACKET (FOR LIQUID) 40 MEQ PO (08:06)
[2021-07-14] MEDS: SODIUM CHLORIDE 1 GM TABLET PO ×3 (08:06→17:07)
[2021-07-14] MEDS: PANTOPRAZOLE 40 MG TABLET PO (08:06)
[2021-07-14] MEDS: ESCITALOPRAM OXALATE 10 MG TABLET PO (08:06)
[2021-07-14] MEDS: ENOXAPARIN 40 MG/0.4 ML SYRINGE SUB-Q (08:06)
[2021-07-14] MEDS: MIDODRINE HCL 2.5 MG TABLET PO ×2 (08:06→17:07)
[2021-07-14 08:31] LABS: Basophils Absolute Auto 0.1 K/mm3 (0.0-0.1); Basophils Percent Auto 0.5 % (0.2-1.2); Eosinophils Absolute Auto 0.1 K/mm3 (0-0.3); Eosinophils Percent Auto 0.6 % (0-4.4); Hematocrit 39.4 % (37.0-47.0); Hemoglobin 12.8 g/dL (12.0-15.0); Immature Granulocyte Absolute 0.05 K/mm3 (0.00-0.031); Immature Granulocyte Percent A 0.5 % (0-0.5); Lymphocytes Percent Auto 15.8 % (18.3-44.2); Mean Corpuscular HGB Conc 32.5 g/dl (32-36); Mean Corpuscular Hemoglobin 27.9 pg (26-34); Mean Corpuscular Volume 85.8 fl (80-100); Mean Platelet Volume 11.4 fl (7.4-10.4); Monocytes Absolute Auto 0.9 K/mm3 (0.1-0.6); Monocytes Percent Auto 8.2 % (2.6-8.5); Neutrophils Percent Auto 74.4 % (45.5-73.1); Platelet Count Result 305 k/mm3 (150-375); Red Blood Count 4.59 M/mm3 (4.2-5.4); Red Cell Distribution Width 15.1 % (11.5-14.5); White Blood Count 10.8 K/mm3 (4.5-10.0)
--- NOTE | 2021-07-14 08:47 | PM.IMPN ---
Progress Note: A&P Additional Plan (1) Acute on Chronic hyponatremia: -her mental status is better. Pt is eating more since megace started. -improved -increase PO sodium chloride 1000mg to TID tablets, follow-up BMP (2) Acute hypokalemia: Replaced All BMP (3) Elevated troponin on admission: Assessment and Plan: Cardiology was consulted at presentation. Stress test was normal and Cardiology has signed off. Patient denies chest pain and dyspnea. Patient has pericardial effusion plan to repeat echo as outpatient (4) Psychiatric disorder: Currently patient is suicidal suicide precaution setter (5) Hypertension: Assessment and Plan: Pt is hypotensive Blood pressure medications halved associated with episodes of orthostatic hypotension started on midodrine psych meds causing postural hypotension. Patient also has mild to moderate pericardial effusion but according to Cardiology no evidence of tamponade consider repeat echo if no improvement of blood pressure otherwise repeat echo as outpatient as per Cardiology recommendation (6) Physical deconditioning: -PT/OT is following. -patient intermittently refusing PT/OT, also sometimes refuses to move or get out of bed for her nurse. (7) Disposition: Probable discharge to psych once medically stable 8. Right hand resting tremor will get CT scan of the head neurology consult Subjective Date/time seen: 07/14/21 08:47 Interval history: Patient seen and examined Patient feels weak today patient stated that she is planning to kill herself patient has a plan she said that she is done with life patient has been under major stress lately Patient denies fever headache chest pain shortness of breath I am seeing the patient for generalized weakness Exam Narrative: Alert Chest no wheeze crackles Abdomen nontender nondistended CVS S1 + S2 Lower extremity edema Neurology nonfocal other than right arm resting tremor Objective Data Vital Signs Vital Signs: Vital Signs - 24 hr 07/13/21 14:00 07/13/21 20:17 07/13/21 20:20 Temperature 97.7 F 98.1 F Pulse Rate 87 79 Respiratory Rate 16 16 Blood Pressure 107/65 148/78 H 117/76 Pulse Oximetry 99 98 07/13/21 20:23 07/14/21 06:00 07/14/21 07:50 Temperature 97.6 F Pulse Rate 100 110 H Respiratory Rate 14 18 Blood Pressure 107/54 L 134/73 102/67 Pulse Oximetry 100 98 07/14/21 08:00 Temperature Pulse Rate 110 H Respiratory Rate 18 Blood Pressure Pulse Oximetry 98 Intake/Output Intake/Output: Intake & Output 07/11/21 07/12/21 07/13/21 07/14/21 23:59 23:59 23:59 23:59 Intake Total 1140 1210 1480 200 Output Total 300 300 Balance 611 784 9405 200 Meds/Results Medications: Active Medications Generic Name Dose Route Start Last Admin Trade Name Freq PRN Reason Stop Dose Admin Acetaminophen 650 mg 07/05/21 22:16 Acetaminophen 325 Mg Tablet PO Q4H PRN Mild Pain (1-3) or Fever Amlodipine Besylate 5 mg 07/06/21 09:00 07/14/21 08:06 Amlodipine Besylate 5 Mg Tablet PO 5 mg DAILY HANNAH Administration Aspirin 81 mg 07/07/21 08:00 07/14/21 08:05 Aspirin 81 Mg Chewable Tablet PO 81 mg DAILY@0800 HANNAH Administration Atorvastatin Calcium 80 mg 07/06/21 00:05 07/13/21 20:36 Atorvastatin 40 Mg Tablet PO 80 mg HS HANNAH Administration Bisacodyl 5 mg 07/05/21 22:16 Bisacodyl 5 Mg Tablet Ec PO DAILY PRN Constipation Buspirone HCl 15 mg 07/06/21 09:00 07/14/21 08:06 Buspirone Hcl 5 Mg Tablet PO 15 mg BID HANNAH Administration Enoxaparin Sodium 40 mg 07/06/21 09:00 07/14/21 08:06 Enoxaparin 40 Mg/0.4 Ml Syringe SUB-Q 40 mg DAILY HANNAH Administration Escitalopram Oxalate 10 mg 07/06/21 09:00 07/14/21 08:06 Escitalopram Oxalate 10 Mg Tablet PO 10 mg DAILY HANNAH Administration Loratadine 10 mg 07/10/21 16:20 07/10/21 17:25 Loratadine 10 Mg Tablet PO 10 mg QAM PRN Administration Nasal Congestion
--- NOTE | 2021-07-14 09:32 | PCPTNOTE ---
Attempted therapy session, Pt is with OT will attempt again.
[2021-07-14 10:34] LABS: Folic Acid 3.2 ng/mL (2.76->20)
--- NOTE | 2021-07-14 10:34 | PC.NURSE ---
Patient does not have IV access. Dr. Moya is aware, and he is ok with the patient having no IV access.
--- NOTE | 2021-07-14 11:52 | PC.NURSE ---
Attempted to call patient's twice to update him on the patient's condition.
--- NOTE | 2021-07-14 11:56 | PC.NURSE ---
This patient, Francisca Gonzales, was transferred to ICU- 10 on 07/14/21 at 1156. Personal belongings sent with patient. Report given to ROXANN Yan. Appropriate documentation sent with patient.
[2021-07-14] MEDS: ATORVASTATIN 40 MG TABLET 80 MG PO (20:33)
[2021-07-14] MEDS: MIRTAZAPINE 15 MG TABLET PO (20:33)
[2021-07-15] VITALS (9 sets, daily range): BP systolic 90–157; BP diastolic 63–87; PULSE 79–86; RESP 14–16; TEMP 36.3–36.7; O2SAT 96–100
[2021-07-15 04:49] LABS: Basophils Absolute Auto 0.1 K/mm3 (0.0-0.1); Basophils Percent Auto 0.7 % (0.2-1.2); Eosinophils Absolute Auto 0.1 K/mm3 (0-0.3); Eosinophils Percent Auto 1.1 % (0-4.4); Hematocrit 36.4 % (37.0-47.0); Immature Granulocyte Absolute 0.02 K/mm3 (0.00-0.031); Immature Granulocyte Percent A 0.3 % (0-0.5); Lymphocytes Absolute Auto 1.84 K/mm3 (0.9-3.2); Lymphocytes Percent Auto 26.4 % (18.3-44.2); Mean Corpuscular Hemoglobin 28.1 pg (26-34); Mean Corpuscular Volume 85.2 fl (80-100); Mean Platelet Volume 10.8 fl (7.4-10.4); Monocytes Absolute Auto 0.5 K/mm3 (0.1-0.6); Monocytes Percent Auto 7.2 % (2.6-8.5); Neutrophils Absolute Auto 4.5 K/mm3 (1.3-6.7); Neutrophils Percent Auto 64.3 % (45.5-73.1); Platelet Count Result 299 k/mm3 (150-375); Red Blood Count 4.27 M/mm3 (4.2-5.4); Red Cell Distribution Width 15.2 % (11.5-14.5)
[2021-07-15 05:02] LABS: Anion Gap 7 mmol/L (8-16); Blood Urea Nitrogen 16 mg/dL (7-17); Calcium 8.4 mg/dL (8.4-10.2); Carbon Dioxide 21 mmol/L (22-30); Chloride 107 mmol/L (98-107); Estimated CRCL calculation 50 ml/min; Estimated Glomerular Filt Rate > 60; Glucose 92 mg/dL (65-110); Potassium 3.6 mmol/L (3.4-5.0); Sodium 135 mmol/L (137-145)
[2021-07-15] MEDS: MELOXICAM 7.5 MG TABLET 15 MG PO (09:06)
[2021-07-15] MEDS: amLODIPine BESYLATE 5 MG TABLET PO (09:06)
[2021-07-15] MEDS: ESCITALOPRAM OXALATE 10 MG TABLET PO (09:07)
[2021-07-15] MEDS: ENOXAPARIN 40 MG/0.4 ML SYRINGE SUB-Q (09:07)
[2021-07-15] MEDS: MIDODRINE HCL 2.5 MG TABLET PO ×2 (09:07→17:39)
[2021-07-15] MEDS: PANTOPRAZOLE 40 MG TABLET PO (09:07)
[2021-07-15] MEDS: busPIRone HCL 5 MG TABLET 15 MG PO ×2 (09:08→17:39)
[2021-07-15] MEDS: POTASSIUM CHLORIDE 20 MEQ PACKET (FOR LIQUID) 40 MEQ PO ×2 (09:09→17:40)
[2021-07-15] MEDS: ASPIRIN 81 MG CHEWABLE TABLET PO (09:09)
[2021-07-15] MEDS: MEGESTROL ACETATE (*CHEMO) ORAL SUSP 40 MG/ML SYR 800 MG PO (09:09)
[2021-07-15] MEDS: SODIUM CHLORIDE 1 GM TABLET PO ×3 (09:10→17:40)
--- NOTE | 2021-07-15 10:08 | WPDNEURCNPN ---
Consult date: 07/15/21 HPI: Francisca Gonzales is a 65 year old female admitted to the hospital for the complaints of emotional distress she initially presented to an outside emergency room with complaints of weakness but by the time she was seen by our physician here PMFSH Past Medical History Medical History (Updated 07/09/21 @ 11:23 by Genie Amaya MD) COPD (chronic obstructive pulmonary disease) Dyslipidemia Hypertension Hyponatremia Psychiatric disorder Surgical History Surgical History (Updated 07/05/21 @ 23:29 by Eleanor Leahy APRN) History of carotid endarterectomy Family History Family History Mother Parkinson disease Sibling Breast cancer Father Heart attack Social History Social History Smoking packs per day: 1.5 Smoking cigarettes per day: 30.0 Years smoked: 30 Smoking pack-years: 45.00 Smoking status: Former smoker Alcohol intake: never Substance use: never Spiritual care concerns: No Meds Home Medications and Allergies Home Medications Medication Instructions Recorded Confirmed Type Aspir-81 81 mg PO BID 07/05/21 07/05/21 History amlodipine 5 mg PO DAILY 07/05/21 07/05/21 History atorvastatin 80 mg PO HS 07/05/21 07/05/21 History buspirone [BuSpar] 15 mg PO BID 07/05/21 07/05/21 History escitalopram oxalate [Lexapro] 10 mg PO DAILY 07/05/21 07/05/21 History labetalol 100 mg PO Q12H 07/05/21 07/05/21 History meloxicam 15 mg PO DAILY 07/05/21 07/05/21 History mirtazapine [Remeron] 15 mg PO HS 07/05/21 07/05/21 History omeprazole 20 mg PO DAILY 07/05/21 07/05/21 History Allergies Allergy/AdvReac Type Severity Reaction Status Date / Time mold Allergy Headache Verified 07/05/21 22:38 ciprofloxacin [From Cipro] AdvReac Itching Verified 07/05/21 22:52 Vital Signs Vital Signs - 24 hr 07/14/21 14:00 07/14/21 20:00 07/14/21 20:02 Temperature 36.6 C Pulse Rate 82 Respiratory Rate 18 Blood Pressure 126/75 136/82 110/73 Pulse Oximetry 100 98 07/14/21 22:00 07/15/21 06:00 07/15/21 07:45 Temperature 36.9 C 36.3 C L Pulse Rate 86 82 85 Respiratory Rate 17 15 14 Blood Pressure 117/72 121/87 157/86 H Pulse Oximetry 97 96 99 07/15/21 08:00 07/15/21 08:47 07/15/21 08:48 Temperature Pulse Rate 85 Respiratory Rate 14 Blood Pressure 157/86 H 124/82 90/63 L Pulse Oximetry 100 Results Labs CBC & Chem 7: 07/15/21 04:04 07/15/21 04:04 Labs: Short CBC 07/15/21 Range/Units 04:04 WBC 7.0 (4.5-10.0) K/mm3 Hgb 12.0 (12.0-15.0) g/dL Hct 36.4 L (37.0-47.0) % Plt Count 299 (150-375) k/mm3 BMP 07/15/21 04:04 Sodium 135 L Potassium 3.6 Chloride 107 Carbon Dioxide 21 L BUN 16 Creatinine 0.70 Glucose 92 Calcium 8.4 Quality VTE Prophylaxis VTE prophylaxis: mechanical ordered and pharmacologic ordered
--- NOTE | 2021-07-15 10:12 | WPDNEURCNPN ---
Assessment and Plan Additional Plan neurological examination is nonfocal with negative CT scan of the head she has obvious signs of these depression too extreme degree and will benefit from the psych intervention thank you very much for letting me evaluate this patient Consult date: 07/15/21 HPI: Francisca Gonzales is a 65 year old femaleHas been admitted to the hospital for generalized weakness but in addition to significant mental stress, in addition to ongoing history of 1. COPD 2. Hypertension 3. Dyslipidemia 4. Hyponatremia 5. Psychiatric disorder 6. Status post carotid endarterectomy. Patient has been taking [place] tele prime 10 mg daily as an outpatient in addition to merit has a PN 15 mg HS and BuSpar 15 mg twice a day evaluation up until now has documented to have no leukocytosis hemoglobin is 12.0 platelet count 299 basic metabolic panel is almost normal except the sodium [address] scan of the head is completely normal during the hospitalization here this time she has been seen by the flipping machine operator she also has undergone a stress test Review of Systems Review of Systems: All systems reviewed & are unremarkable except as noted in HPI and below PMFSH Past Medical History Medical History COPD (chronic obstructive pulmonary disease) Dyslipidemia Hypertension Hyponatremia Psychiatric disorder Surgical History Surgical History History of carotid endarterectomy Family History Family History Mother Parkinson disease Sibling Breast cancer Father Heart attack Social History Social History Smoking packs per day: 1.5 Smoking cigarettes per day: 30.0 Years smoked: 30 Smoking pack-years: 45.00 Smoking status: Former smoker Alcohol intake: never Substance use: never Spiritual care concerns: No Meds Home Medications and Allergies Home Medications Medication Instructions Recorded Confirmed Type Aspir-81 81 mg PO BID 07/05/21 07/05/21 History amlodipine 5 mg PO DAILY 07/05/21 07/05/21 History atorvastatin 80 mg PO HS 07/05/21 07/05/21 History buspirone [BuSpar] 15 mg PO BID 07/05/21 07/05/21 History escitalopram oxalate [Lexapro] 10 mg PO DAILY 07/05/21 07/05/21 History labetalol 100 mg PO Q12H 07/05/21 07/05/21 History meloxicam 15 mg PO DAILY 07/05/21 07/05/21 History mirtazapine [Remeron] 15 mg PO HS 07/05/21 07/05/21 History omeprazole 20 mg PO DAILY 07/05/21 07/05/21 History Allergies Allergy/AdvReac Type Severity Reaction Status Date / Time mold Allergy Headache Verified 07/05/21 22:38 ciprofloxacin [From Cipro] AdvReac Itching Verified 07/05/21 22:52 Vital Signs Vital Signs - 24 hr 07/14/21 14:00 07/14/21 20:00 07/14/21 20:02 Temperature 36.6 C Pulse Rate 82 Respiratory Rate 18 Blood Pressure 126/75 136/82 110/73 Pulse Oximetry 100 98 07/14/21 22:00 07/15/21 06:00 07/15/21 07:45 Temperature 36.9 C 36.3 C L Pulse Rate 86 82 85 Respiratory Rate 17 15 14 Blood Pressure 117/72 121/87 157/86 H Pulse Oximetry 97 96 99 07/15/21 08:00 07/15/21 08:47 07/15/21 08:48 Temperature Pulse Rate 85 Respiratory Rate 14 Blood Pressure 157/86 H 124/82 90/63 L Pulse Oximetry 100 Exam Const: General: cooperative, alert, in distress and anxious Nutritional Appearance: thin Orientation/consciousness: oriented to person and oriented to place HENMT: Head: normal to inspection and normocephalic Ears: hearing grossly normal bilaterally General nose exam: Normal external nose present Face and sinus: normal facial exam Eyes: General: appearance normal, both eyes and all related structures Visual Good: normal visual good by confrontation Alignment and Position: alignment normal Periorbital: periorbital findings normal Eyelids: eyelids normal Conjunctivae: co
[2021-07-15] MEDS: SODIUM CHLORIDE 0.9% IV 500 ML IV CONT (12:31)
--- NOTE | 2021-07-15 16:28 | PM.IMPN ---
Progress Note: A&P Assessment and Plan (1) Psychiatric disorder: Code(s): F99 - Mental disorder, not otherwise specified Status: Acute (2) Orthostatic hypotension: Code(s): I95.1 - Orthostatic hypotension Status: Acute (3) Hyponatremia: Code(s): E87.1 - Hypo-osmolality and hyponatremia Status: Resolved (4) Elevated troponin: Code(s): R77.8 - Other specified abnormalities of plasma proteins Status: Acute Additional Plan 55-year-old female who presented to an outside emergency room with complaints of weakness per outside emergency room records. (1) Acute on Chronic hyponatremia: -her mental status is better. Pt is eating more since megace started. -improved c/w PO sodium chloride 1000mg to TID tablets, follow-up BMP (2) Acute hypokalemia: Replaced All BMP (3) Elevated troponin on admission: Cardiology was consulted at presentation. Stress test was normal and Cardiology has signed off. Patient denies chest pain and dyspnea. Patient has pericardial effusion plan to repeat echo as outpatient (4) Psychiatric disorder: denies Sucidal ideation but easily agitated Will c/w 1:1 suicide precaution for now (5) Orthostatic Hypertension: Will give 500 cc of bolus Start on florinef (6) Physical deconditioning: -PT/OT is following. -patient intermittently refusing PT/OT, also sometimes refuses to move or get out of bed for her nurse. 7) DVT ppx: Lovenox 8)Code:Full (9) Disposition: Probable discharge to psych once medically stable Time Spent With Patient Time with patient: 15 - 25 minutes Subjective Date/time seen: 07/15/21 16:28 denies suicidal ideations Orthostatic hypotension present Review of Systems Review of Systems: All systems reviewed & are unremarkable except as noted in HPI and below Constitutional: Constitutional: Reports no additional constitutional complaints Eyes: Eyes: Reports no additional eye complaints ENT: Reports system reviewed and no additional complaints, except as documented Cardiovascular: Cardiovascular: Reports no additional cardiovascular complaints Respiratory: Respiratory: Reports no additional respiratory complaints Gastrointestinal: Gastrointestinal: Reports no additional gastrointestinal complaints Integumentary/Breasts: Skin/Breast: Reports system reviewed and no additional complaints, except as docu Neurologic: Reports system reviewed and no additional complaints, except as documented Exam Const: General: no acute distress HENMT: Mouth: Yes moist mucous membranes Eyes: Pupils: Equal, round and reactive pupils present Neck: Neck: supple Resp: Auscultation: clear to auscultation bilaterally Cardio: Rate: regular rate Rhythm: regular rhythm GI: GI Palp: Yes Soft to palpation Auscultation: normal bowel sounds Skin: General skin exam: normal color Psych: Mental Status: mental status grossly normal Objective Data Vital Signs Vital Signs: Vital Signs - 24 hr 07/14/21 20:00 07/14/21 20:02 07/14/21 22:00 Temperature 98.5 F Pulse Rate 86 Respiratory Rate 17 Blood Pressure 136/82 110/73 117/72 Pulse Oximetry 98 97 07/15/21 06:00 07/15/21 07:45 07/15/21 08:00 Temperature 97.4 F L Pulse Rate 82 85 85 Respiratory Rate 15 14 14 Blood Pressure 121/87 157/86 H 157/86 H Pulse Oximetry 96 99 100 07/15/21 08:47 07/15/21 08:48 07/15/21 14:00 Temperature 98.1 F Pulse Rate 86 Respiratory Rate 16 Blood Pressure 124/82 90/63 L 146/83 H Pulse Oximetry 100 Intake/Output Intake/Output: Intake & Output 07/12/21 07/13/21 07/14/21 07/15/21 23:59 23:59 23:59 23:59 Intake Total 1210 1480 1597 1130 Output Total 300 650 Balance 910 1480 1597 480 Meds/Results Medications: Active Medications Generic Name Dose Route Start Last Admin Trade Name Freq PRN Reason Stop Dose Admin Acetaminophen 650 mg 07/05/21 22:16 Acetaminophen 325 Mg Tablet PO Q4H PRN
[2021-07-15] MEDS: ATORVASTATIN 40 MG TABLET 80 MG PO (20:19)
[2021-07-15] MEDS: MIRTAZAPINE 15 MG TABLET PO (20:19)
[2021-07-16] VITALS (8 sets, daily range): BP systolic 103–171; BP diastolic 68–93; PULSE 79–88; RESP 16–17; TEMP 36.2–36.8; O2SAT 97–100
[2021-07-16] MEDS: ENOXAPARIN 40 MG/0.4 ML SYRINGE SUB-Q (08:43)
[2021-07-16] MEDS: SODIUM CHLORIDE 1 GM TABLET PO ×3 (08:44→17:10)
[2021-07-16] MEDS: MIDODRINE HCL 2.5 MG TABLET PO ×2 (08:44→17:09)
[2021-07-16] MEDS: busPIRone HCL 5 MG TABLET 15 MG PO ×2 (08:44→17:09)
[2021-07-16] MEDS: MELOXICAM 7.5 MG TABLET 15 MG PO (08:44)
[2021-07-16] MEDS: PANTOPRAZOLE 40 MG TABLET PO (08:45)
[2021-07-16] MEDS: ESCITALOPRAM OXALATE 10 MG TABLET PO (08:45)
[2021-07-16] MEDS: amLODIPine BESYLATE 5 MG TABLET PO (08:45)
[2021-07-16] MEDS: MEGESTROL ACETATE (*CHEMO) ORAL SUSP 40 MG/ML SYR 800 MG PO (08:45)
[2021-07-16] MEDS: FLUDROCORTISONE ACETATE 0.1 MG TABLET PO (08:45)
[2021-07-16] MEDS: ASPIRIN 81 MG CHEWABLE TABLET PO (08:46)
[2021-07-16 09:37] LABS: Basophils Percent Auto 0.3 % (0.2-1.2); Eosinophils Percent Auto 0.3 % (0-4.4); Hematocrit 41.1 % (37.0-47.0); Hemoglobin 13.4 g/dL (12.0-15.0); Immature Granulocyte Absolute 0.05 K/mm3 (0.00-0.031); Immature Granulocyte Percent A 0.4 % (0-0.5); Lymphocytes Percent Auto 12.6 % (18.3-44.2); Mean Corpuscular HGB Conc 32.6 g/dl (32-36); Mean Corpuscular Hemoglobin 27.9 pg (26-34); Mean Corpuscular Volume 85.4 fl (80-100); Mean Platelet Volume 9.9 fl (7.4-10.4); Monocytes Absolute Auto 0.5 K/mm3 (0.1-0.6); Monocytes Percent Auto 3.9 % (2.6-8.5); Neutrophils Absolute Auto 9.9 K/mm3 (1.3-6.7); Neutrophils Percent Auto 82.5 % (45.5-73.1); Platelet Count Result 364 k/mm3 (150-375); Red Blood Count 4.81 M/mm3 (4.2-5.4); Red Cell Distribution Width 15.4 % (11.5-14.5)
[2021-07-16] MEDS: POTASSIUM CHLORIDE 20 MEQ TABLET.ER 40 MEQ PO (09:38)
[2021-07-16 09:53] LABS: Anion Gap 6 mmol/L (8-16); Blood Urea Nitrogen 20 mg/dL (7-17); Calcium 9.1 mg/dL (8.4-10.2); Carbon Dioxide 21 mmol/L (22-30); Chloride 105 mmol/L (98-107); Estimated CRCL calculation 50 ml/min; Estimated Glomerular Filt Rate > 60; Glucose 120 mg/dL (65-110); Potassium 5.1 mmol/L (3.4-5.0); Sodium 132 mmol/L (137-145)
--- NOTE | 2021-07-16 11:47 | PCNFU ---
Nutrition Follow-Up Complete: Unintentional weight loss related to suboptimal po intake and poor appetite as evidenced by hx of significant wt loss and reported intake. goal: PO intake to be greater than or equal to 75% of meals Patient is progressing towards goal. We will continue current goal. Pt current nutrition is Regular. Last recorded weight is 51.1 kg-stable since admit. Bowel Motility:No BM reported. Discussed with nursing today. Labs Reviewed:Hct 36.4,Na 135 Meds Noted:Megace, Remeron, Protonix, Lovenox, KCl Tablet, Mobic, Lipitor, Norvasc, Lipitor, Buspar, Florinef. Skin: WNL Additional Notes: Nutrition follow up. Patient had been on a diabetic diet with Glucerna shakes. Unsure of reasoning for restricted diet. Spoke with MD today, recommending a regular diet order-patient remains on suicide precautions. Oral Intake has been fair, 50-100% reported. Patient is drinking diet supplements providing an additional 220 kcals and 10 gms protein. Agree with diet orders. Monitor intake, wt, labs. Follow up in 5 days.
--- NOTE | 2021-07-16 13:31 | PM.IMPN ---
Progress Note: A&P Assessment and Plan (1) Psychiatric disorder: Code(s): F99 - Mental disorder, not otherwise specified Status: Acute Assessment and Plan: Patient is on multiple psychiatric medications. mood is stable today (2) Orthostatic hypotension: Code(s): I95.1 - Orthostatic hypotension Status: Acute Assessment and Plan: Will decrease Norvasc. Monitor orthostatics. (3) Hyponatremia: Code(s): E87.1 - Hypo-osmolality and hyponatremia Status: Resolved Assessment and Plan: Sodium is much improved. Her mental status is better. Pt is eating more since megace started. (4) Elevated troponin: Code(s): R77.8 - Other specified abnormalities of plasma proteins Status: Acute Assessment and Plan: No further workup for cardiology Subjective Date/time seen: 07/16/21 13:31 Feeling okay. Still having episodes of orthostatics hypotension. Exam Narrative: Alert Chest no wheeze crackles Abdomen nontender nondistended CVS S1 + S2 Lower extremity edema Neurology nonfocal other than right arm resting tremor Const: General: cooperative, comfortable, no acute distress and alert HENMT: Head: normal to inspection Mouth: Yes moist mucous membranes Eyes: Pupils: Equal, round and reactive pupils present Neck: Neck: supple Resp: Effort & Inspection: normal respiratory effort and able to speak in complete sentences Auscultation: clear to auscultation bilaterally Cardio: Rate: regular rate Rhythm: regular rhythm Heart sounds: S1 normal heart sound present and S2 normal heart sound present GI: Inspection: normal to inspection Auscultation: normal bowel sounds and normoactive bowel sounds Skin: General skin exam: normal color Neuro: Cranial nerves: Yes Equal, round and reactive pupils present Extrem: General: normal to inspection and no clubbing, cyanosis or edema Psych: Mental Status: mental status grossly normal Objective Data Vital Signs Vital Signs: Vital Signs - 24 hr 07/15/21 14:00 07/15/21 20:00 07/15/21 20:05 Temperature 98.1 F Pulse Rate 86 Respiratory Rate 16 Blood Pressure 146/83 H 132/85 101/72 Pulse Oximetry 100 97 07/15/21 22:00 07/16/21 06:00 07/16/21 08:00 Temperature 97.6 F 98.3 F Pulse Rate 79 79 Respiratory Rate 15 17 Blood Pressure 138/81 131/84 Pulse Oximetry 96 97 100 07/16/21 08:36 07/16/21 08:37 Temperature 97.6 F Pulse Rate 88 Respiratory Rate 16 Blood Pressure 163/92 H 103/77 Pulse Oximetry 100 Intake/Output Intake/Output: Intake & Output 07/13/21 07/14/21 07/15/21 07/16/21 23:59 23:59 23:59 23:59 Intake Total 1480 1597 1970 357 Output Total 650 0 Balance 1480 1597 1320 357 Meds/Results Medications: Active Medications Generic Name Dose Route Start Last Admin Trade Name Freq PRN Reason Stop Dose Admin Acetaminophen 650 mg 07/05/21 22:16 Acetaminophen 325 Mg Tablet PO Q4H PRN Mild Pain (1-3) or Fever Amlodipine Besylate 5 mg 07/06/21 09:00 07/16/21 08:45 Amlodipine Besylate 5 Mg Tablet PO 5 mg DAILY HANNAH Administration Aspirin 81 mg 07/07/21 08:00 07/16/21 08:46 Aspirin 81 Mg Chewable Tablet PO 81 mg DAILY@0800 HANNAH Administration Atorvastatin Calcium 80 mg 07/06/21 00:05 07/15/21 20:19 Atorvastatin 40 Mg Tablet PO 80 mg HS HANNAH Administration Bisacodyl 5 mg 07/05/21 22:16 Bisacodyl 5 Mg Tablet Ec PO DAILY PRN Constipation Buspirone HCl 15 mg 07/06/21 09:00 07/16/21 08:44 Buspirone Hcl 5 Mg Tablet PO 15 mg BID HANNAH Administration Enoxaparin Sodium 40 mg 07/06/21 09:00 07/16/21 08:43 Enoxaparin 40 Mg/0.4 Ml Syringe SUB-Q 40 mg DAILY HANNAH Administration Escitalopram Oxalate 10 mg 07/06/21 09:00 07/16/21 08:45 Escitalopram Oxalate 10 Mg Tablet PO 10 mg DAILY HANNAH Administration Fludrocortisone Acetate 0.1 mg 07/16/21 08:00 07/16/21 08:45 Fludrocortisone
[2021-07-16] MEDS: ATORVASTATIN 40 MG TABLET 80 MG PO (20:08)
[2021-07-16] MEDS: MIRTAZAPINE 15 MG TABLET PO (20:08)
[2021-07-17] VITALS: BP 130/91; BP 154/89; PULSE 84; PULSE 86; RESP 16; RESP 17; TEMP 37; TEMP 37.2; O2SAT 96; O2SAT 98
[2021-07-17 07:58] LABS: Basophils Absolute Auto 0.1 K/mm3 (0.0-0.1); Basophils Percent Auto 0.6 % (0.2-1.2); Eosinophils Percent Auto 0.3 % (0-4.4); Hematocrit 38.7 % (37.0-47.0); Hemoglobin 12.7 g/dL (12.0-15.0); Immature Granulocyte Absolute 0.04 K/mm3 (0.00-0.031); Immature Granulocyte Percent A 0.4 % (0-0.5); Lymphocytes Absolute Auto 1.71 K/mm3 (0.9-3.2); Lymphocytes Percent Auto 17.2 % (18.3-44.2); Mean Corpuscular HGB Conc 32.8 g/dl (32-36); Mean Corpuscular Hemoglobin 28.2 pg (26-34); Mean Corpuscular Volume 85.8 fl (80-100); Mean Platelet Volume 9.9 fl (7.4-10.4); Monocytes Absolute Auto 0.7 K/mm3 (0.1-0.6); Monocytes Percent Auto 6.6 % (2.6-8.5); Neutrophils Absolute Auto 7.4 K/mm3 (1.3-6.7); Neutrophils Percent Auto 74.9 % (45.5-73.1); Platelet Count Result 347 k/mm3 (150-375); Red Blood Count 4.51 M/mm3 (4.2-5.4); Red Cell Distribution Width 15.5 % (11.5-14.5); White Blood Count 9.9 K/mm3 (4.5-10.0)
[2021-07-17 08:00] VITALS: BP 140/79; PULSE 98; RESP 12; TEMP 35.8; O2SAT 97
[2021-07-17] MEDS: MEGESTROL ACETATE (*CHEMO) ORAL SUSP 40 MG/ML SYR 800 MG PO (09:27)
[2021-07-17] MEDS: ENOXAPARIN 40 MG/0.4 ML SYRINGE SUB-Q (09:27)
[2021-07-17] MEDS: PANTOPRAZOLE 40 MG TABLET PO (09:27)
[2021-07-17] MEDS: SODIUM CHLORIDE 1 GM TABLET PO ×2 (09:27→17:18)
[2021-07-17] MEDS: busPIRone HCL 5 MG TABLET 15 MG PO ×2 (09:28→17:18)
[2021-07-17] MEDS: ESCITALOPRAM OXALATE 10 MG TABLET PO (09:28)
[2021-07-17] MEDS: FLUDROCORTISONE ACETATE 0.1 MG TABLET PO (09:28)
[2021-07-17] MEDS: MELOXICAM 7.5 MG TABLET 15 MG PO (09:28)
[2021-07-17] MEDS: MIDODRINE HCL 2.5 MG TABLET PO ×2 (09:29→17:18)
[2021-07-17] MEDS: ASPIRIN 81 MG CHEWABLE TABLET PO (09:30)
[2021-07-17 09:47] VITALS: BP 138/77
[2021-07-17 09:50] VITALS: BP 129/84
[2021-07-17 09:55] VITALS: BP 93/54
[2021-07-17] MEDS: SODIUM CHLORIDE 0.9% IV 1,000 ML 75 ML IV CONT (10:03)
--- NOTE | 2021-07-17 11:00 | PM.IMPN ---
Progress Note: A&P Additional Plan (1) Acute on Chronic hyponatremia: -her mental status is better. Pt is eating more since megace started. -improved - PO sodium chloride , follow-up BMP (2) Acute hypokalemia: Replaced All BMP (3) Elevated troponin on admission: Assessment and Plan: Cardiology was consulted at presentation. Stress test was normal and Cardiology has signed off. Patient denies chest pain and dyspnea. Patient has pericardial effusion plan to repeat echo as outpatient (4) Psychiatric disorder: Currently patient is suicidal suicide precaution setter (5) Hypertension: Assessment and Plan: Pt is hypotensive Blood pressure medications halved associated with episodes of orthostatic hypotension started on midodrine psych meds causing postural hypotension. Patient also has mild to moderate pericardial effusion but according to Cardiology no evidence of tamponade consider repeat echo if no improvement of blood pressure otherwise repeat echo as outpatient as per Cardiology recommendation Will give IV hydration As patient still orthostatic (6) Physical deconditioning: -PT/OT is following. -patient intermittently refusing PT/OT, also sometimes refuses to move or get out of bed for her nurse. (7) Disposition: Probable discharge to psych once medically stable 8. Right hand resting tremor monitor Subjective Date/time seen: 07/17/21 11:00 Interval history: Patient seen and examined Patient feels weak today Orthostatic vital was done and was positive blood pressure dropped systolic from 135 to 94 Patient denies fever headache chest pain shortness of breath I am seeing the patient for generalized weakness Exam Narrative: Alert Chest no wheeze crackles Abdomen nontender nondistended CVS S1 + S2 Lower extremity edema Neurology nonfocal other than right arm resting tremor Objective Data Vital Signs Vital Signs: Vital Signs - 24 hr 07/16/21 15:42 07/16/21 19:23 07/16/21 20:00 Temperature 97.1 F L Pulse Rate 85 Respiratory Rate 16 Blood Pressure 171/93 H 168/89 H Pulse Oximetry 98 97 07/16/21 20:02 07/17/21 00:00 07/17/21 08:00 Temperature 98.9 F 96.5 F L Pulse Rate 84 98 Respiratory Rate 17 12 Blood Pressure 109/68 130/91 H 140/79 Pulse Oximetry 96 97 07/17/21 09:47 07/17/21 09:50 07/17/21 09:55 Temperature Pulse Rate Respiratory Rate Blood Pressure 138/77 129/84 93/54 L Pulse Oximetry Intake/Output Intake/Output: Intake & Output 07/14/21 07/15/21 07/16/21 07/17/21 23:59 23:59 23:59 23:59 Intake Total 1597 1970 1527 Output Total 650 800 850 Balance 1597 1320 727 -850 Meds/Results Medications: Active Medications Generic Name Dose Route Start Last Admin Trade Name Freq PRN Reason Stop Dose Admin Acetaminophen 650 mg 07/05/21 22:16 Acetaminophen 325 Mg Tablet PO Q4H PRN Mild Pain (1-3) or Fever Amlodipine Besylate 2.5 mg 07/16/21 13:33 07/17/21 09:59 Amlodipine Besylate 2.5 Mg Tablet PO Not Given DAILY [facility] Aspirin 81 mg 07/07/21 08:00 07/17/21 09:30 Aspirin 81 Mg Chewable Tablet PO 81 mg DAILY@0800 [facility] Administration Atorvastatin Calcium 80 mg 07/06/21 00:05 07/16/21 20:08 Atorvastatin 40 Mg Tablet PO 80 mg HS HANNAH Administration Bisacodyl 5 mg 07/05/21 22:16 Bisacodyl 5 Mg Tablet Ec PO DAILY PRN Constipation Buspirone HCl 15 mg 07/06/21 09:00 07/17/21 09:28 Buspirone Hcl 5 Mg Tablet PO 15 mg BID HANNAH Administration Enoxaparin Sodium 40 mg 07/06/21 09:00 07/17/21 09:27 Enoxaparin 40 Mg/0.4 Ml Syringe SUB-Q 40 mg DAILY HANNAH Administration Escitalopram Oxalate 10 mg 07/06/21 09:00 07/17/21 09:28 Escitalopram Oxalate 10 Mg Tablet PO 10 mg DAILY HANNAH Administration Fludrocortisone Acetate 0.1 mg 07/16/21 08:00 07/17/21 09:28 Fludrocortisone Acetate 0.1 Mg Tablet PO 0.1 mg DAILY@0800 [facility] Administration Sodium Chloride 1,
[2021-07-17 16:00] VITALS: BP 102/90; PULSE 80; RESP 16; TEMP 36.7; O2SAT 99
--- NOTE | 2021-07-17 18:15 | PC.NURSE ---
Patient unable to urinate this shift. Patient states I have a kidney disease that makes me not pee, you can't make me. Bladder scan shows >999. Educated patient on the importance of draining her bladder. Obtained order for wilson, patient then refused wilson. Patient able to urinate 400 mL. Patient requesting to hold wilson order at this time.
[2021-07-17] MEDS: MIRTAZAPINE 15 MG TABLET PO (20:23)
[2021-07-17] MEDS: ATORVASTATIN 40 MG TABLET 80 MG PO (20:23)
[2021-07-18] VITALS: BP 154/89; PULSE 86; RESP 16; TEMP 37; O2SAT 98
[2021-07-18 00:03] VITALS: BP 123/81
[2021-07-18] MEDS: SODIUM CHLORIDE 0.9% IV 1,000 ML 75 ML IV CONT ×2 (02:20→15:52)
[2021-07-18 08:00] VITALS: BP 170/90; PULSE 91; RESP 20; TEMP 36.7; O2SAT 99
--- NOTE | 2021-07-18 09:23 | PC.NURSE ---
PATIENT IS REFUSING ALL MEDS AT THIS TIME. REINFORCED IMPORTANCE OF TAKING PRESCRIBED MEDICATIONS. WILL ATTEMPT AGAIN IN 1 HOURS.
--- NOTE | 2021-07-18 10:34 | PM.IMPN ---
Progress Note: A&P Additional Plan (1) Acute on Chronic hyponatremia: -her mental status is better. Pt is eating more since megace started. -improved - PO sodium chloride , follow-up BMP -pending repeat CMP (2) Acute hypokalemia: Replaced Pending repeat CMP (3) Elevated troponin on admission: Assessment and Plan: Cardiology was consulted at presentation. Stress test was normal and Cardiology has signed off. Patient denies chest pain and dyspnea. Patient has pericardial effusion plan to repeat echo as outpatient (4) Psychiatric disorder: Currently patient is suicidal suicide precaution setter (5) Hypertension: Assessment and Plan: Pt is hypotensive Blood pressure medications halved associated with episodes of orthostatic hypotension started on midodrine psych meds causing postural hypotension. Patient also has mild to moderate pericardial effusion but according to Cardiology no evidence of tamponade consider repeat echo if no improvement of blood pressure otherwise repeat echo as outpatient as per Cardiology recommendation Will give IV hydration As patient still orthostatic DC midodrine I ordered TSH and cortisol level (6) Physical deconditioning: -PT/OT is following. -patient intermittently refusing PT/OT, also sometimes refuses to move or get out of bed for her nurse. (7) Disposition: Probable discharge to psych once orthostatic hypotension resolved 8. Right hand resting tremor monitor neurology recommendation appreciated CT scan of the head negative resolved probably related to anxiety Subjective Date/time seen: 07/18/21 10:34 Interval history: Patient seen and examined Patient feels weak today Orthostatic vital still positive I think it is more from dehydration than vasovagal Started IV fluid Overnight patient has urine retention Dodson catheter was placed Voiding trial today DC midodrine Continue IV hydration Continue orthostatic every shift Patient denies fever headache chest pain shortness of breath I am seeing the patient for generalized weakness Exam Narrative: Alert Chest no wheeze crackles Abdomen nontender nondistended CVS S1 + S2 Lower extremity edema Neurology nonfocal other than right arm resting tremor Objective Data Vital Signs Vital Signs: Vital Signs - 24 hr 07/17/21 16:00 07/18/21 00:00 07/18/21 00:03 Temperature 98.0 F 98.6 F Pulse Rate 80 86 Respiratory Rate 16 16 Blood Pressure 102/90 154/89 H 123/81 Pulse Oximetry 99 98 07/18/21 08:00 Temperature 98.1 F Pulse Rate 91 Respiratory Rate 20 Blood Pressure 170/90 H Pulse Oximetry 99 Intake/Output Intake/Output: Intake & Output 07/15/21 07/16/21 07/17/21 07/18/21 23:59 23:59 23:59 23:59 Intake Total 1970 1527 744 616 Output Total 868 921 2162 1415 Balance 1320 863 -383 -576 Meds/Results Medications: Active Medications Generic Name Dose Route Start Last Admin Trade Name Freq PRN Reason Stop Dose Admin Acetaminophen 650 mg 07/05/21 22:16 Acetaminophen 325 Mg Tablet PO Q4H PRN Mild Pain (1-3) or Fever Amlodipine Besylate 2.5 mg 07/16/21 13:33 07/17/21 09:59 Amlodipine Besylate 2.5 Mg Tablet PO Not Given DAILY [facility] Aspirin 81 mg 07/07/21 08:00 07/17/21 09:30 Aspirin 81 Mg Chewable Tablet PO 81 mg DAILY@0800 HANNAH Administration Atorvastatin Calcium 80 mg 07/06/21 00:05 07/17/21 20:23 Atorvastatin 40 Mg Tablet PO 80 mg HS HANNAH Administration Bisacodyl 5 mg 07/05/21 22:16 Bisacodyl 5 Mg Tablet Ec PO DAILY PRN Constipation Buspirone HCl 15 mg 07/06/21 09:00 07/17/21 17:18 Buspirone Hcl 5 Mg Tablet PO 15 mg BID HANNAH Administration Enoxaparin Sodium 40 mg 07/06/21 09:00 07/17/21 09:27 Enoxaparin 40 Mg/0.4 Ml Syringe SUB-Q 40 mg DAILY HANNAH Administration Escitalopram Oxalate 10 mg 07/06/21 09:00 07/17/21 09:28 Escitalopram Oxalate 10 Mg Tablet PO 10 mg DAILY HANNAH Administration Fludrocortisone
[2021-07-18 10:53] LABS: Basophils Absolute Auto 0.1 K/mm3 (0.0-0.1); Basophils Percent Auto 0.3 % (0.2-1.2); Eosinophils Percent Auto 0.2 % (0-4.4); Hemoglobin 12.5 g/dL (12.0-15.0); Immature Granulocyte Absolute 0.07 K/mm3 (0.00-0.031); Immature Granulocyte Percent A 0.4 % (0-0.5); Lymphocytes Absolute Auto 1.52 K/mm3 (0.9-3.2); Mean Corpuscular HGB Conc 32.9 g/dl (32-36); Mean Corpuscular Hemoglobin 28.4 pg (26-34); Mean Corpuscular Volume 86.4 fl (80-100); Mean Platelet Volume 9.9 fl (7.4-10.4); Monocytes Absolute Auto 1.5 K/mm3 (0.1-0.6); Neutrophils Absolute Auto 15.7 K/mm3 (1.3-6.7); Neutrophils Percent Auto 83.1 % (45.5-73.1); Platelet Count Result 397 k/mm3 (150-375); Red Cell Distribution Width 15.6 % (11.5-14.5); White Blood Count 18.9 K/mm3 (4.5-10.0)
--- NOTE | 2021-07-18 10:57 | PC.NURSE ---
PATIENT CONTINUES TO REFUSE MEDICATIONS. REMINDED HER OF THE IMPORTANCE OF TAKING MEDICATIONS.
[2021-07-18 11:08] LABS: Alanine Aminotransferase 22 U/L (4-35); Albumin Level 3.2 g/dL (3.5-5.1); Alkaline Phosphatase 48 U/L (38-126); Anion Gap 7 mmol/L (8-16); Aspartate Amino Transferase 26 U/L (14-36); Bilirubin,Total 0.2 mg/dL (0.2-1.3); Blood Urea Nitrogen 21 mg/dL (7-17); Calcium 8.7 mg/dL (8.4-10.2); Carbon Dioxide 21 mmol/L (22-30); Chloride 109 mmol/L (98-107); Estimated CRCL calculation 50 ml/min; Estimated Glomerular Filt Rate > 60; Glucose 97 mg/dL (65-110); Potassium 3.8 mmol/L (3.4-5.0); Sodium 137 mmol/L (137-145)
--- NOTE | 2021-07-18 11:17 | PCOTNOTE ---
Attempted to see patient this am, however patient refused stating, I'm too tired. I can't. I can't. I'm exhausted.
[2021-07-18 11:39] LABS: Cortisol Random 2.92 ug/dL
[2021-07-18 11:41] LABS: Thyroid Stimulating Hormone Reflex 0.675 uIU/mL (0.465-4.68)
[2021-07-18] MEDS: MEGESTROL ACETATE (*CHEMO) ORAL SUSP 40 MG/ML SYR 800 MG PO (15:49)
[2021-07-18 15:59] VITALS: BP 154/89; PULSE 90; RESP 18; TEMP 36.8; O2SAT 97
[2021-07-18] MEDS: SODIUM CHLORIDE 1 GM TABLET PO (16:23)
[2021-07-18] MEDS: busPIRone HCL 5 MG TABLET 15 MG PO (16:24)
[2021-07-18] MEDS: ATORVASTATIN 40 MG TABLET 80 MG PO (20:10)
[2021-07-18] MEDS: MIRTAZAPINE 15 MG TABLET PO (20:11)
[2021-07-18 23:53] VITALS: BP 131/68; PULSE 92; RESP 16; TEMP 37; O2SAT 99
[2021-07-19] MEDS: SODIUM CHLORIDE 0.9% IV 1,000 ML 75 ML IV CONT (04:30)
[2021-07-19 05:18] LABS: Alanine Aminotransferase 21 U/L (4-35); Albumin Level 2.7 g/dL (3.5-5.1); Alkaline Phosphatase 52 U/L (38-126); Anion Gap 5 mmol/L (8-16); Aspartate Amino Transferase 25 U/L (14-36); Bilirubin,Total 0.3 mg/dL (0.2-1.3); Blood Urea Nitrogen 21 mg/dL (7-17); Calcium 8.4 mg/dL (8.4-10.2); Carbon Dioxide 21 mmol/L (22-30); Chloride 109 mmol/L (98-107); Estimated CRCL calculation 57 ml/min; Estimated Glomerular Filt Rate > 60; Glucose 91 mg/dL (65-110); Potassium 3.8 mmol/L (3.4-5.0); Sodium 135 mmol/L (137-145)
[2021-07-19] MEDS: MEGESTROL ACETATE (*CHEMO) ORAL SUSP 40 MG/ML SYR 800 MG PO (07:55)
[2021-07-19] MEDS: FLUDROCORTISONE ACETATE 0.1 MG TABLET PO (07:56)
[2021-07-19] MEDS: MELOXICAM 7.5 MG TABLET 15 MG PO (07:57)
[2021-07-19] MEDS: POTASSIUM CHLORIDE 20 MEQ TABLET.ER 40 MEQ PO (07:57)
[2021-07-19 08:00] VITALS: BP 155/87; PULSE 84; RESP 17; TEMP 36.8; O2SAT 98
[2021-07-19] MEDS: SODIUM CHLORIDE 1 GM TABLET PO ×3 (08:00→16:03)
[2021-07-19] MEDS: busPIRone HCL 5 MG TABLET 15 MG PO ×2 (08:00→16:03)
[2021-07-19] MEDS: PANTOPRAZOLE 40 MG TABLET PO (08:00)
[2021-07-19] MEDS: ENOXAPARIN 40 MG/0.4 ML SYRINGE SUB-Q (08:00)
[2021-07-19 08:09] VITALS: BP 120/73
[2021-07-19] MEDS: ASPIRIN 81 MG CHEWABLE TABLET PO (08:49)
[2021-07-19 08:55] LABS: Basophils Percent Auto 0.3 % (0.2-1.2); Eosinophils Percent Auto 0.3 % (0-4.4); Hematocrit 35.5 % (37.0-47.0); Hemoglobin 11.7 g/dL (12.0-15.0); Immature Granulocyte Absolute 0.03 K/mm3 (0.00-0.031); Immature Granulocyte Percent A 0.3 % (0-0.5); Lymphocytes Absolute Auto 1.34 K/mm3 (0.9-3.2); Lymphocytes Percent Auto 14.2 % (18.3-44.2); Mean Corpuscular Hemoglobin 28.3 pg (26-34); Mean Corpuscular Volume 85.7 fl (80-100); Monocytes Absolute Auto 0.5 K/mm3 (0.1-0.6); Monocytes Percent Auto 5.7 % (2.6-8.5); Neutrophils Absolute Auto 7.5 K/mm3 (1.3-6.7); Neutrophils Percent Auto 79.2 % (45.5-73.1); Platelet Count Result 374 k/mm3 (150-375); Red Blood Count 4.14 M/mm3 (4.2-5.4); Red Cell Distribution Width 15.5 % (11.5-14.5); White Blood Count 9.5 K/mm3 (4.5-10.0)
[2021-07-19] MEDS: ESCITALOPRAM OXALATE 10 MG TABLET PO (09:05)
--- NOTE | 2021-07-19 11:18 | PCNFU ---
Nutrition Follow-Up Complete: Unintentional weight loss related to suboptimal po intake and poor appetite as evidenced by hx of significant wt loss and reported intake. goal: PO intake to be greater than or equal to 75% of meals Patient is progressing towards goal. We will continue current goal. Pt current nutrition is Regular with Ensure Enlive TID. Last recorded weight is 56 kg-stable Bowel Motility:+BM reports 07/10. Plans for Dulcolax to be given today per nursing. Labs Reviewed:Cr 0.6,Na 135, Alb 2.7,Hgb 11.7, Hct 35.5 Meds Noted:NS, Remeron, Protonix, KCL tablet, Lipitor, BuSpar, Lovenox, Florinef, Megace Skin: WNL Additional Notes: Nutrition follow up. Patient remains on a regular diet. Oral Intake has been poor past couple of days-refusing meals and therapy. Patient is drinking diet supplements of Ensure Enlive TID providing an additional 350 kcals and 20 gms protein. PO intake encouraged. Agree with diet orders. Monitor intake, wt, labs. Follow up in 5 days.
[2021-07-19] MEDS: BISACODYL 5 MG TABLET EC PO (12:02)
[2021-07-19 12:20] LABS: EDCOVIDSCREEN Negative (Negative)
--- NOTE | 2021-07-19 15:14 | PM.IMPN ---
Progress Note: A&P Assessment and Plan (1) Psychiatric disorder: Code(s): F99 - Mental disorder, not otherwise specified Status: Acute Assessment and Plan: Patient is on multiple psychiatric medications. mood is stable today (2) Orthostatic hypotension: Code(s): I95.1 - Orthostatic hypotension Status: Acute Assessment and Plan: Will decrease Norvasc. Monitor orthostatics. (3) Hyponatremia: Code(s): E87.1 - Hypo-osmolality and hyponatremia Status: Resolved Assessment and Plan: Sodium is much improved. Her mental status is better. Pt is eating more since megace started. (4) Elevated troponin: Code(s): R77.8 - Other specified abnormalities of plasma proteins Status: Acute Assessment and Plan: No further workup for cardiology Additional Plan (1) Acute on Chronic hyponatremia: -her mental status is better. Pt is eating more since megace started. -improved - PO sodium chloride , follow-up BMP -pending repeat CMP (2) Acute hypokalemia: Replaced Pending repeat CMP (3) Elevated troponin on admission: Assessment and Plan: Cardiology was consulted at presentation. Stress test was normal and Cardiology has signed off. Patient denies chest pain and dyspnea. Patient has pericardial effusion plan to repeat echo as outpatient (4) Psychiatric disorder: Currently patient is suicidal suicide precaution setter (5) Hypertension: Assessment and Plan: Pt is hypotensive Blood pressure medications halved associated with episodes of orthostatic hypotension started on midodrine psych meds causing postural hypotension. Patient also has mild to moderate pericardial effusion but according to Cardiology no evidence of tamponade consider repeat echo if no improvement of blood pressure otherwise repeat echo as outpatient as per Cardiology recommendation Will give IV hydration As patient still orthostatic DC midodrine I ordered TSH and cortisol level (6) Physical deconditioning: -PT/OT is following. -patient intermittently refusing PT/OT, also sometimes refuses to move or get out of bed for her nurse. (7) Disposition: Probable discharge to psych once orthostatic hypotension resolved 8. Right hand resting tremor monitor neurology recommendation appreciated CT scan of the head negative resolved probably related to anxiety Subjective Date/time seen: 07/19/21 15:14 Chief Complaint: Emotional distress Narrative: Ms. Gonzales is a 55-year-old female who presented to an outside emergency room with complaints of weakness per outside emergency room records. At this time patient is telling me that she went to the emergency room for emotional distress and she states that she is under a large amount of stress at home and has lost 100 lb in 4 months and she needed help with her finding assistance for her distress. Per outside records patient went into emergency room for complaints of generalized weakness for unknown amount of time. Patient had denied any chest pain, nausea, vomiting, fevers, chills, chest pain, or shortness of breath. At this point time patient will not discuss any symptomology with me she states that she is just to her limit of stress and that is why she is here. Per outside records patient has not been taking her medications for 3-4 days. At this point time she states she takes them off and on and that her tries to assist her with him, but he is also under a large amount of stress and is not always able to help her. Per outside records patient does have a history of chronic hyponatremia and has been hospitalized at least twice for this issue. Upon evaluation at the emergency room patient was noted to have a sodium of 128 and a troponin of 0.046. It was decided that the patient may be transferred to in establishment that had Cardiology available for further recommendations. Patient states that she did have bilateral carotid endarterectomies, but den
--- NOTE | 2021-07-19 15:35 | PM.DS ---
DS: Admitting Diagnosis Discharge Date 07/19/2021 Admitting Diagnosis Emotional distress DS: Discharge Diagnosis Discharge Diagnosis (1) Psychiatric disorder: Code(s): F99 - Mental disorder, not otherwise specified Status: Acute Assessment and Plan: Patient is on multiple psychiatric medications. mood is stable today (2) Orthostatic hypotension: Code(s): I95.1 - Orthostatic hypotension Status: Acute Assessment and Plan: Will decrease Norvasc. Monitor orthostatics. (3) Hyponatremia: Code(s): E87.1 - Hypo-osmolality and hyponatremia Status: Resolved Assessment and Plan: Sodium is much improved. Her mental status is better. Pt is eating more since megace started. (4) Elevated troponin: Code(s): R77.8 - Other specified abnormalities of plasma proteins Status: Acute Assessment and Plan: No further workup for cardiology DS: Summary Hospital Course Reason for hospitalization: Chief Complaint: Emotional distress Narrative: Ms. Gonzales is a 55-year-old female who presented to an outside emergency room with complaints of weakness per outside emergency room records. At this time patient is telling me that she went to the emergency room for emotional distress and she states that she is under a large amount of stress at home and has lost 100 lb in 4 months and she needed help with her finding assistance for her distress. Per outside records patient went into emergency room for complaints of generalized weakness for unknown amount of time. Patient had denied any chest pain, nausea, vomiting, fevers, chills, chest pain, or shortness of breath. At this point time patient will not discuss any symptomology with me she states that she is just to her limit of stress and that is why she is here. Per outside records patient has not been taking her medications for 3-4 days. At this point time she states she takes them off and on and that her tries to assist her with him, but he is also under a large amount of stress and is not always able to help her. Per outside records patient does have a history of chronic hyponatremia and has been hospitalized at least twice for this issue. Upon evaluation at the emergency room patient was noted to have a sodium of 128 and a troponin of 0.046. It was decided that the patient may be transferred to in establishment that had Cardiology available for further recommendations. Patient states that she did have bilateral carotid endarterectomies, but denies any coronary artery stenting or coronary artery bypass grafting. Per outside emergency records patient does have a significant psychiatric history including depressive disorder and is supposed to be taking BuSpar 15 mg twice daily, Lexapro 10 mg once daily, Ativan 0.5 mg every 12 hours as needed for anxiety, Remeron 15 mg at bedtime. Patient is also supposed to be taking amlodipine 5 mg daily aspirin 81 mg once daily atorvastatin 80 mg daily and labetalol every 12 hours. As I stated we are unsure of how long patient has been now off of her medications. Hospital Course: 07/19/2021 interval history: Patient is 65-year-old female presented within a emotional distress and expressed suicidal ideation, medically there was a concern of hypotension patient was started on midodrine and blood pressure has improved and midodrine was stopped, there was also elevated tropes patient was seen by fiber designer patient had a stress test which essentially normal without any ischemic event, patient remains clinically stable Patient was seen by crisis team and have decided patient is not suicidal and does not need inpatient psychiatric care and has safety contract with patient not to commit suicide. patient to follow up with her psychiatris and primary care provider as soon as possible, patient is instructed if any symptoms redevelop to go to nearest ER Time Spent with Patient Time attestation: Total time spent pro
--- NOTE | 2021-07-19 15:40 | PC.NURSE ---
Crisis intervention here to see patient. Safety contract implemented. Denies any SI. Crisis denies any need for inpatient psych admissions. Hospitalist and care coordination made aware. This nurse left a message with patient's to return call with update. Awaiting returned call.
[2021-07-19 15:57] VITALS: BP 150/80; PULSE 88; RESP 16; O2SAT 99
== END 2021-07-19 18:38 | disposition home or self-care (01) | DRG 426 ==
LOC: ANHIMU 07-06 14:34 → ANH2MED 07-08 07:25 → ANHIMU 07-08 09:23 → ANH2MED 07-14 10:47 → ANHICU 07-19 15:44 → ANH2MED 07-22 10:32 → ANHICU 07-22 10:32
PROVIDERS: Chiropractor; Family Medicine; Internal Medicine; Nurse Practitioner Adult Health; Admitting Provider Internal Medicine; Visit Provider Family Medicine
DX: E87.1 Hypo-osmolality and hyponatremia (principal); Z20.822 Contact with and (suspected) exposure to COVID-19; R77.8 Other specified abnormalities of plasma proteins; I10 Essential (primary) hypertension; Z87.891 Personal history of nicotine dependence; J44.9 Chronic obstructive pulmonary disease, unspecified; E78.5 Hyperlipidemia, unspecified; Z79.82 Long term (current) use of aspirin; Z79.899 Other long term (current) drug therapy; Z82.49 Family history of ischemic heart disease and other diseases of the circulatory system; Z86.73 Personal history of transient ischemic attack (TIA), and cerebral infarction without residual deficits; I31.3 Pericardial effusion (noninflammatory); E87.6 Hypokalemia; I95.1 Orthostatic hypotension; R45.851 Suicidal ideations; F32.9 Major depressive disorder, single episode, unspecified; R63.0 Anorexia; R63.4 Abnormal weight loss
CPT/HCPCS: 36415; 70450; 71045; 78452; 80048; 80053; 82533; 82607; 82746; 83036; 83735; 84443; 84484; 85025; 87086; 87426; 93005; 93017; 93306; 96360; 96361; 96372; 96374; 97110; 97116; 97161; 97165; 97530; 97535; A9270; A9502; C9803; G0378; G0379; J1650; J2405; J2785; J3475; J3480; J7030; J7040